=== PATIENT | male | born 1950 | race Caucasian/White ===

== ENCOUNTER 2016-04-02 13:25 | Observation (INO) | payer MEDICARE ==
--- NOTE | 2016-04-02 14:45 | ER Document Report ---
ED Medical Screen (RME) - General Chief Complaint: Rectal Pain Stated Complaint: POSSIBLE HEMMORHOIDS Mode of Arrival: Ambulatory Information source: Patient Notes: Patient is c/o diarrhea that started 3 days ago which he believes caused hemorrhoids. He states the rectal pain is severe pressure but this has improved since yesterday. He believes some burst yesterday, he saw pus at that time and he also endorses some BRBPR on the toilet paper and leakage causing him to need to change his underwear every 30 minutes. He tried immodium yesterday which seemed to stop the leakage. He has also tried several baths which provided some relief. Prior to this, he was hospitalized in [place] Mar 14 and hospitalized for 5 days for a severe bacterial infection of his abdomen and was discharged on two antibiotics, tetracycline and metronidazole. TRAVEL OUTSIDE OF THE [place] IN LAST 30 DAYS: No - Related Data Allergies/Adverse Reactions: Abx Allergy (Uncoded 04/02/16 13:35) Review of Systems - Review of Systems Constitutional: See HPI Gastrointestinal: See HPI Genitourinary: See HPI Physical Exam - Vital signs Vitals: Temp Pulse Resp BP Pulse Ox 98.4 F 111 H 20 171/106 H 98 04/02/16 13:31 04/02/16 13:31 04/02/16 13:04/02/16 13:04/02/16 13:31 - Notes Notes: General: hypertensive, tachycardia, afebrile. Appears uncomfortable but non- toxic. Course - Re-evaluation Re-evalutation: 04/02/16 14:45 Patient seen and examined. Ordered labs, urinalysis and occult blood. - Vital Signs Vital signs: Temp Pulse Resp BP Pulse Ox 98.4 F 111 H 20 171/106 H 98 04/02/16 13:31 04/02/16 13:31 04/02/16 13:31 04/02/16 13:31 04/02/16 13:31
[2016-04-02 15:39] LABS: ABSOLUTE BASOPHILS # (AUTO) 0.1 10^3/uL (0.0-0.2); ABSOLUTE EOSINOPHILS # (AUTO) 0.4 10^3/uL (0.0-0.6); ABSOLUTE LYMPHOCYTES (AUTO) 1.8 10^3/uL (0.5-4.7); ABSOLUTE MONOCYTES (AUTO) 1.1 10^3/uL (0.1-1.4); ABSOLUTE NEUT (AUTO) 8.3 10^3/uL (1.7-8.2); HEMATOCRIT 49.8 % (37.9-51.0); HEMOGLOBIN 16.6 g/dL (13.5-17.0); LYMPHOCYTES % (AUTO) 15.5 % (13-45); MEAN CORPUSCULAR HEMOGLOBIN 30.5 pg (27.0-33.4); MEAN CORPUSCULAR HGB CONC 33.4 g/dL (32.0-36.0); MEAN CORPUSCULAR VOLUME 91 fl (80-97); MONOCYTES % (AUTO) 9.3 % (3-13); RED BLOOD COUNT 5.44 10^6/uL (4.35-5.55); SEGMENTED NEUTROPHILS % (AUTO) 71.2 % (42-78); WHITE BLOOD COUNT 11.6 10^3/uL (4.0-10.5)
[2016-04-02 15:42] LABS: APPEARANCE,URINE SLIGHTLY-CLOUDY; BILIRUBIN,URINE NEGATIVE (NEGATIVE); GLUCOSE, URINE NEGATIVE (NEGATIVE); KETONES,URINE TRACE mg/dL (NEGATIVE); LEUKOCYTE ESTERASE,URINE NEGATIVE (NEGATIVE); NITRITE,URINE NEGATIVE (NEGATIVE); PROTEIN,URINE NEGATIVE (NEGATIVE); UROBILINOGEN,URINE NEGATIVE mg/dL (<2.0)
[2016-04-02 15:44] LABS: PROTHROMBIN TIME 12.8 SEC (11.4-15.4)
[2016-04-02 15:49] LABS: ALANINE AMINOTRANSFERASE 40 U/L (21-72); ALBUMIN 4.1 g/dL (3.5-5.0); ALKALINE PHOSPHATASE 82 U/L (38-126); ANION GAP 13 (5-19); ASPARTATE AMINO TRANSFERASE 32 U/L (17-59); BILIRUBIN,TOTAL 0.6 mg/dL (0.2-1.3); BLOOD UREA NITROGEN 20 mg/dL (7-20); CARBON DIOXIDE 27 mmol/L (22-30); CHLORIDE 104 mmol/L (98-107); CREATININE RESULT 1.01 mg/dL (0.52-1.25); GLUCOSE 102 mg/dL (75-110); LIPASE 228.1 U/L (23-300); POTASSIUM 4.3 mmol/L (3.6-5.0); SODIUM 144.3 mmol/L (137-145); TOTAL PROTEIN 7.3 g/dL (6.3-8.2)
--- NOTE | 2016-04-02 17:58 | ER Document Report ---
ED GI Bleed / Rectal Pain - General Chief Complaint: Rectal Pain Stated Complaint: POSSIBLE HEMMORHOIDS Time seen by provider: 17:53 Mode of Arrival: Ambulatory TRAVEL OUTSIDE OF THE [place] IN LAST 30 DAYS: No - HPI Patient complains to provider of: Rectal pain - pt was recently d/c'd from a [facility] on multiple meds -- started having diarrhea 3 days ago and then developed rectal pain . He has tried warm baths and ice but pain has continued --he noticed some blood on his underwear yesterday. - Related Data Allergies/Adverse Reactions: Abx Allergy (Uncoded 04/02/16 13:35) Past Medical History - General Information source: Patient - Social History Smoking Status: Never Smoker Cigarette use (# per day): No Chew tobacco use (# tins/day): No Smoking Education Provided: No Family History: None Review of Systems - Review of Systems Constitutional: No symptoms reported EENT: No symptoms reported Cardiovascular: No symptoms reported Respiratory: No symptoms reported Gastrointestinal: Other - rectal pain Male Genitourinary: No symptoms reported Musculoskeletal: No symptoms reported -: Yes All other systems reviewed and negative Physical Exam - Vital signs Vitals: Temp Pulse Resp BP Pulse Ox 98.4 F 111 H 20 171/106 H 98 04/02/16 13:31 04/02/16 13:31 04/02/16 13:31 04/02/16 13:31 04/02/16 13:31 Course - Vital Signs Vital signs: Temp Pulse Resp BP Pulse Ox 98.4 F 111 H 16 179/103 H 97 04/02/16 13:31 04/02/16 13:31 04/02/16 18:01 04/02/16 18:01 04/02/16 18:01 - Laboratory Result Diagrams: 04/02/16 15:23 04/02/16 15:23 Laboratory results interpreted by me: 04/02/16 04/02/16 15:11 15:23 WBC 11.6 H Absolute Neutrophils 8.3 H Urine Ketones TRACE H - Consults kim allan Time consulted: 18:57 Consulted provider: will come to ER Discharge - Discharge Clinical Impression: Thrombosed external hemorrhoids Condition: Stable Disposition: ADMITTED OBSERVATION Unit Admitted: Surgical Floor - dr. allan to admit
[2016-04-02] MEDS ORDERED: VERAPAMIL HCL 240 MG TABLET.SA PO ONE ×2 (18:03→21:00)
[2016-04-02] MEDS ORDERED: LIDOCAINE 2% JELLY 5 ML TUBE ONE (18:30)
[2016-04-02] MEDS ORDERED: ONDANSETRON HCL INJ/PF 4 MG/2 ML SDV IV PRN (19:06)
--- NOTE | 2016-04-02 19:22 | PDOC H&P ---
History of Present Illness Admission Date/PCP: 04/02/2015 Patient complains of: Rectal pain, bleeding History of Present Illness: ADRIAN ALMAZAN is a 65 year old male resents to the emergency department complaining of a 3 day history of loose stools, rectal pain, and anal mass associated with bleeding and purulent discharge. The patient was in his usual state of good health until approximately 1-1/2 weeks ago while he was driving through [place] from [place] he developed abdominal pain. He was admitted to [facility] in [place] where he underwent extensive workup and was found to have Helicobacter pylori infection. He was started on herbal therapy, and did well until approximately 3 days ago when the above symptoms started. He is seen in the emergency department and was found to have prolapsing , nonreducible external hemorrhoids with excoriation. Surgery is consulted and he was advised admission. In the emergency department Dr. Novak attempted to reduce the hemorrhoids after application of ice, and lidocaine jelly, but was only partially successful. Patient's last colonoscopy was 2 and at years ago at which time polyps were removed. He denies history of colon or rectal problems, denies history of constipation. He has never had any anorectal pathology. 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 Also has a history of hypertension but untreated Past Surgical History Past Surgical History: Reports: None Social History Occupation: Retired , travels Smoking Status: Never Smoker Frequency of Alcohol Use: Rare Drugs: None Family History Family History: None, Other - Son has a history of recurrent vein thrombosis, treated nonoperatively with anticoagulation and Coumadin. Subsequently multiple family members tested positive for antithrombin III deficiency Parental Family History Reviewed: Yes Children Family History Reviewed: Yes Sibling(s) Family History Reviewed.: Yes Medication/Allergy Allergies/Adverse Reactions: Abx Allergy (Uncoded 04/02/16 13:35) Review of Systems Gastrointestinal: PRESENT: other - Extensive diarrhea the last several days. Mucous bloody and purulent drainage from around the anus. Physical Exam Vital Signs: Temp Pulse Resp BP Pulse Ox 98.4 F 111 H 16 179/103 H 97 04/02/16 13:31 04/02/16 13:31 04/02/16 18:01 04/02/16 18:01 04/02/16 18:01 Intake & Output 04/01/16 04/02/16 04/03/16 06:59 06:59 06:59 Weight 106.4 kg General appearance: PRESENT: no acute distress Head exam: PRESENT: normocephalic Eye exam: PRESENT: EOMI Ear exam: PRESENT: normal external ear exam Mouth exam: PRESENT: moist Neck exam: PRESENT: full ROM Respiratory exam: PRESENT: clear to auscultation last Cardiovascular exam: PRESENT: RRR Pulses: PRESENT: normal carotid pulses GI/Abdominal exam: PRESENT: other - Abdomen is soft nontender no peritoneal signs. Rectal exam: PRESENT: other - Examining the left lateral decubitus position. There are 2 concentric rings of external hemorrhoids, prolapsed. The outer perimeter consisted of deviated hemorrhoids, edematous ultimately. The inner perimeter insists of at least 3 possibly for most hemorrhoids with overlying mucosal scoring radiation and slough. Results Laboratory Results: 04/02/16 15:23 04/02/16 15:23 04/02/16 04/02/16 04/02/16 15:11 15:23 15:23 WBC 11.6 H RBC 5.44 Hgb 16.6 Hct 49.8 MCV 91 MCH 30.5 MCHC 33.4 RDW 14.0 Plt Count 315 Seg Neutrophils % 71.2 Lymphocytes % 15.5 Monocytes % 9.3 Eosinophils % 3.0 Basophils % 1.0 Absolute Neutrophils 8.3 H Absolute Lymphocytes 1.8 Absolute Monocytes 1.1 Absolute Eosinophils 0.4 Absolute Basophils 0.1 Sodium 144.3 Potassium 4.3 Chloride 104 Carbon Dioxide 27 Anion Gap 13 BUN 20 Creatinine 1.01 Est GFR ( Amer) > 60 Est GFR (Non-Af Amer) > 60 Glucose 102 Calcium 10.0 Total Bilirubin 0.6 AST 32 ALT 40 Alkaline Phosphatase 82 Total Protein 7.3 Albumin 4.1 Lipase 228.1 Urine Color YELLOW Urine Appearance SLIGHTLY-CLOUDY Urine pH 5.0 Ur Specific [place] 1.030 Urine Protein NEGATIVE Urine Glucose (UA) NEGATIVE Urine Ketones TRACE H Urine Blood NEGATIVE Urine Nitrite NEGATIVE Ur Leukocyte Esterase NEGATIVE Urine WBC (Auto) 2 Urine RBC (Auto) 1 Status: Imported from PACS Assessment & Plan - Diagnosis (1) Thrombosed external hemorrhoids Is this a current diagnosis for this admission?: YesPlan: 1. Despite efforts to reduce thrombosed, edematous external hemorrhoids at the bedside in the emergency department, were only able to get partial reduction. Therefore given the patient's symptoms, component of thrombosis, and mucosal slough, interval hemorrhoidectomy is indicated. 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 2. Admit to the surgical service keep nothing by mouth after midnight, keep ice on the anal tissue. Also provide pain medication as needed. 3. Will check chest x-ray and EKG as part of the preoperative evaluation 4. Will have hospitalist consult on management of hypertension (2) Antithrombin III deficiency Is this a current diagnosis for this admission?: YesPlan: The patient has no history of DVT or PE. He is about to undergo interval hemorrhoidectomy. I believe the risk benefit ratio of prophylactic anticoagulation is in favor of withholding such treatment at this time. (3) Hypertension Is this a current diagnosis for this admission?: YesPlan: Will consult hospitalist for assistance in medical management of hypertension - Time Time Spent: 30 to 50 Minutes Critical Time spent with patient: 15-24 minutes Anticipated discharge: Home - Inpatient Certification Based on my medical assessment, after consideration of the patient's comorbidities, presenting symptoms, or acuity I expect that the services needed warrant INPATIENT care.: Yes I certify that my determination is in accordance with my understanding of Medicare's requirements for reasonable and necessary INPATIENT services [42 CFR 412.3e].: Yes Medical Necessity: Need For IV Fluids, Need for Pain Control, Need for Surgery
[2016-04-02] MEDS ORDERED: (PENDING PHARMACY ID) (Lisinopril/Hydrochlorothiazide [Lisinopril-Hctz 20-12.5 Mg Tab] 2 E PO SCH (21:00)
--- NOTE | 2016-04-02 21:07 | PDOC CONSULTATION ---
Consultation Consult Date: 04/02/16 Attending physician:: SHAYLA DRAKE Consult reason:: HTN management History of Present Illness Admission Date/PCP: 04/02/16 19:04 Patient complains of: rectal pain, bleeding History of Present Illness: ADRIAN ALMAZAN is a 65 year old male admitted to the surgery service for management of thrombosed external hemorrhoids and rectal bleeding. History and physical has been reviewed. Hospitalist service has been asked to manage his elevated blood pressure. Patient has been discussed with daytime hospitalist who spoke with the admitting surgeon. Patient normally is on verapamil and lisinopril HCTZ combo. Has had neither medication today. Normally he is compliant with his medications. Denies nausea vomiting, fever or chills, chest or abdominal pain. Diagnosed with antithrombin III deficiency this past summer. His primary care provider has chosen not to proceed with prophylactic anticoagulation. Both children also have same deficiency. Complains of a somewhat annoying cough, describing onset when he first presented to the emergency room. However, upon further discussion with patient he states family members have told him he actually has had a morning cough for quite some time. Denies any chronic underlying pulmonary disease such as asthma , COPD, or emphysema. Currently resting quietly, still having some mild perianal discomfort. Laboratory results are listed in [employer] and are reviewed. X-ray summary results are listed below, with full report(s) reviewed. . Social history/personal habits: . Has children. Retired. No use of tobacco or illicit drugs. Rare alcohol use. Family History : Both children have antithrombin III deficiency. Patient is an only child. Father is alive and healthy. Mother of cancer. Allergies/adverse reactions are listed in [employer] and are reviewed. Home medications are reviewed with patient and review of a hand written list of his medications and are to be reconc[facility]. Home medications initially autopopulated into [employer] may not accurately reflect patient's true medications, dosages, and/or frequencies. Compliant with medications, although has not taken any of his medications today. REVIEW OF SYSTEMS: Constitutional: No fever or chills. Eyes: No vision complaints. ENT: No swallowing problems or complaints. No hearing problems or complaints. Pulmonary: See history and present illness. Cardiovascular: No current complaints, including chest pain. Gastrointestinal: See history and present illness. Skin: No current complaints, including rashes. Hematologic: No unusual easy bruising or bleeding. Neurologic: No current complaints, including numbness or tingling. Musculoskeletal: No current bony or joint complaints. Psychiatric: No current complaints, including anxiety or depression. Endocrine: No current complaints, including polyuria. Genitourinary: No current complaints, including dysuria. PHYSICAL EXAMINATION: 5 feet 11 inches tall. 106.4 kg. BMI 32.7 kg/m. Blood pressure 154/105. Pulse 100 and regular. 97% saturation on room air. Respirations are 16 and unlabored. Temperature 98.4. Daughter is present at his side; patient approves. His female emergency room nurse Shameka is present. Slightly obese otherwise well-developed male appearing slightly younger than his stated age. Pleasant awake alert and cooperative. No obvious distress other than somewhat anxious. Skin is warm and dry. No grossly obvious evidence of rash in areas of skin examined. No subcutaneous nodules palpated. ENT: Hearing grossly normal to normal conversation. Tongue midline on protrusion pink and slightly tacky Eyes: No scleral icterus. Pupils equal and reactive to light at 4 mm. Catarina conjunctivae. Neck is supple and nontender to gentle active range of motion and palpation. Midline trachea. No palpable thyroid nodule mass enlargement or tenderness. Lymphatic: No palpable cervical or clavicular nodes. Neck and lymphatic exams limited by patient body habitus. Psychiatric: Reasonable insight into acute and chronic medical issues. Oriented to time location and why here. Lungs: Auscultation reveals clear and equal breath sounds bilaterally. No use of accessory respiratory muscles. Cardiovascular: Heart regular rate and rhythm, without gallop murmur or rub. No carotid or abdominal aortic bruits. No ankle or pedal edema. Faintly palpable dorsalis pedis pulses. Abdomen: soft, somewhat obese, nontender with positive bowel sounds. Unable to adequately evaluate abdomen for masses or organomegaly due to body habitus. Extremities: Feet are warm and dry. No calf tenderness to compression. No grossly obvious visual evidence of calf swelling. Gentle manipulation of lower extremities fails to reveal any obvious evidence of injury or instability to knees hips or ankles. Neurologic: Moves upper extremities grossly normally. Patellar reflexes absent. Absent Babinski. Light touch intact at feet. Dorsiflexion and plantarflexion of feet 5 / 5 and symmetric. Past Medical History Cardiac Medical History: Reports: Hypertension, Other - History of superficial venous thrombosis, upper extremity, by his description. Denies: Congestive Heart Failure, DVT, Myocardial Infarction, Hyperlipidema, Pulmonary Embolism Pulmonary Medical History: Denies: Asthma, Chronic Obstructive Pulmonary Disease (COPD) EENT Medical History: Denies: Eyes, Ears, Throat Neurological Medical History: Denies: Hemorrhagic CVA, Ischemic CVA, Seizures Endocrine Medical History: Denies: Diabetes Mellitus Type 1, Diabetes Mellitus Type 2, Hyperthyroidism, Hypothyroidism Renal/ Medical History: Reports: None Malignancy Medical History: Reports: Skin Cancer - Several precancerous skin lesions excised from his scalp. GI Medical History: Denies: Cirrhosis, Gastroesophageal Reflux Disease, Hepatitis, Peptic Ulcer Disease Musculoskeltal Medical History: Reports: Gout Skin Medical History: Reports: Other - Several precancerous skin lesions excised from his scalp. Denies: Eczema, Psoriasis Psychiatric Medical History: Denies: Alcohol Dependency, Depression, General Anxiety Disorder, Substance Abuse, Tobacco Dependency Hematology: Reports: Other - Antithrombin III deficiency. No history of significant thrombosis. Infectious Medical History: Denies: Hepatitis B, Hepatitis C Past Surgical History Past Surgical History: Reports: Other - [place] teeth extraction. Social History Information Source: Patient, Relative, Emergency Med Personnel, [facility] Records Smoking Status: Never Smoker Frequency of Alcohol Use: Rare Drugs: None - Advance Directive Resuscitation Status: Full Code Surrogate healthcare decision maker:: His son Family History Family History: None Parental Family History Reviewed: Yes Children Family History Reviewed: Yes Sibling(s) Family History Reviewed.: NA Medication/Allergy Home Medications: RX: Allopurinol [Zyloprim 300 mg Tablet] 300 mg PO DAILY 04/02/16 RX: Aspirin [Aspirin EC] 81 mg PO DAILY 04/02/16 RX: Multivitamin [Daily Multiple Vitamin] 1 tab PO DAILY 04/02/16 RX: Verapamil HCl [Verapamil ER] 240 mg PO DAILY 04/02/16 RX: Lisinopril/Hydrochlorothiazide [Lisinopril-Hctz 20-12.5 mg Tab] 2 each PO DAILY 04/03/16 RX: Docusate Sodium [Colace 100 mg Capsule] 100 mg PO BID #0 capsule 04/04/16 RX: Oxycodone HCl/Acetaminophen [Percocet 5-325 mg Tablet] 1 tab PO Q4HP PRN # 20 tablet 04/04/16 RX: Polyethylene Glycol 3350 [Miralax Powder 17 gm/Packet] 17 gm PO Q12H #0 powd.pack 04/04/16 Allergies/Adverse Reactions: clarithromycin [From Biaxin] Allergy (Verified 04/02/16 23:07) Abx Allergy (Uncoded 04/02/16 13:35) Physical Exam Vital Signs: Temp Pulse Resp BP Pulse Ox 98.4 F 111 H 16 179/103 H 97 04/02/16 13:31 04/02/16 13:31 04/02/16 18:01 04/02/16 18:01 04/02/16 18:01 Results Impressions: Chest X-Ray 04/02/16 18:55 IMPRESSION: REACTIVE AIRWAY DISEASE VERSUS VIRAL SYNDROME. NO CONSOLIDATION. Assessment & Plan - Diagnosis (1) Cough Is this a current diagnosis for this admission?: YesPlan: Rapid flu. (2) Abnormal chest xray Is this a current diagnosis for this admission?: YesPlan: Rapid flu. (3) DVT prophylaxis Is this a current diagnosis for this admission?: YesPlan: Per surgery. (4) Hypertensive urgency Is this a current diagnosis for this admission?: YesPlan: Resume home medications as appropriate once these have been reviewed. Impression and plans were discussed with patient and daughter, both of whom concur. Time spent in evaluation and management of patient: 65 minutes. (5) Thrombosed external hemorrhoids Is this a current diagnosis for this admission?: YesPlan: Surgical management. (6) Antithrombin III deficiency Is this a current diagnosis for this admission?: YesPlan: Hematology consult. (7) Gout Qualifiers: Gout site: unspecified site Gout etiology: unspecified cause Chronicity: chronic Is this a current diagnosis for this admission?: YesPlan: Resume home medications as appropriate once these have been reviewed. (8) Hypertension Qualifiers: Hypertension type: essential hypertension Qualified Code(s): I10 - Essential (primary) hypertension Is this a current diagnosis for this admission?: Yes
[2016-04-02] MEDS: MORPHINE SULFATE 10 MG/ML INJ IV PRN (21:51)
[2016-04-02] MEDS: RINGERS SOLUTION,LACTATED 1,000 ML IV PRN (21:55)
[2016-04-02] MEDS ORDERED: LISINOPRIL 10 MG TABLET PO ONE (23:00)
[2016-04-02] MEDS ORDERED: HYDROCHLOROTHIAZIDE 25 MG TABLET PO ONE (23:00)
[2016-04-03] MEDS: MORPHINE SULFATE 10 MG/ML INJ IV PRN ×6 (01:15→22:03)
[2016-04-03] MEDS: RINGERS SOLUTION,LACTATED 1,000 ML IV PRN (05:07)
--- NOTE | 2016-04-03 08:46 | PDOC PROGRESS REPORT ---
[id number], no fever. Physical Exam Vital Signs: Temp Pulse Resp BP Pulse Ox 97.2 F 75 14 113/61 98 04/03/16 08:11 04/03/16 08:11 04/03/16 08:11 04/03/16 08:11 04/03/16 08:11 Intake & Output 04/02/16 04/03/16 04/04/16 06:59 06:59 06:59 Intake Total 0 Output Total 200 Balance -200 Weight 106.6 kg General appearance: PRESENT: no acute distress, cooperative Head exam: PRESENT: atraumatic, normocephalic Respiratory exam: PRESENT: clear to auscultation last GI/Abdominal exam: PRESENT: soft. ABSENT: distended, firm, guarding, hernia Rectal exam: PRESENT: hemorrhoids - There is two concentric rings of prolapsed and thrombosed external hemorrhoids, with extensive surrounding edema in the mucosa. Digital rectal examination was not performed due to pain, no perianal skin changes. Neurological exam: PRESENT: alert, awake Results Impressions: Chest X-Ray 04/02/16 18:55 IMPRESSION: REACTIVE AIRWAY DISEASE VERSUS VIRAL SYNDROME. NO CONSOLIDATION. Assessment & Plan - Diagnosis (1) Thrombosed external hemorrhoids Is this a current diagnosis for this admission?: YesPlan: Patient 65 years old male with prolapsed and thrombosed external hemorrhoid, it is circumferential and extensive, was edematous surrounding tissue, patient will require urgent surgical intervention, excisional hemorrhoidectomy is needed , I discussed with the patient the risks and benefits of the procedure including : Infection, bleeding, pain, scar formation, delayed wound healing, anal stricture, fecal or gas incontinence, perianal fistula, injury to the sphincter muscle or other structures, recurrence of the hemorrhoids, possible need for further interventions or procedures. Patient expressed understanding and agreed to proceed with the procedure. All his questions were answered. (2) Antithrombin III deficiency Is this a current diagnosis for this admission?: YesPlan: Patient is not on anticoagulation, I discussed the case with Dr. Mcqueen, due to the need for urgent surgical intervention, we'll hold on anticoagulation at this point.
[2016-04-03] MEDS ORDERED: CEFAZOLIN SODIUM 1 GM in DEXTROSE 5%-WATER 50 ML IV PRN (09:02)
[2016-04-03] MEDS ORDERED: FENTANYL CITRATE INJ/PF 100 MCG/2 ML AMPUL ONE (09:07)
[2016-04-03] MEDS ORDERED: PROPOFOL INJ 200 MG/20 ML VIAL IV ONE (09:08)
[2016-04-03] MEDS ORDERED: MIDAZOLAM 2 MG/2 ML INJ ONE (09:08)
[2016-04-03] MEDS ORDERED: DEXMEDETOMIDINE INJ 80 MCG/20 ML VIAL IV ONE (09:08)
[2016-04-03] MEDS ORDERED: EPHEDRINE SULFATE INJ 50 MG/1 ML AMPULE ONE (09:09)
[2016-04-03] MEDS ORDERED: BUPIVACAINE HCL 0.25% /EPINEPHRINE INJ/PF 30 ML SDV ONE (09:11)
[2016-04-03] MEDS ORDERED: LIDOCAINE 1% INJ-PF (10 MG/ML) 30 ML SDV ONE (09:11)
[2016-04-03] MEDS ORDERED: CEFAZOLIN INJ 1 GM VIAL ONE (09:20)
[2016-04-03] MEDS ORDERED: (PENDING PHARMACY ID) (Lisinopril/Hydrochlorothiazide [Lisinopril-Hctz 20-12.5 Mg Tab] 2 E PO SCH (10:00)
[2016-04-03] MEDS ORDERED: FENTANYL CITRATE INJ/PF 100 MCG/2 ML AMPUL IV PRN ×3 (10:06)
[2016-04-03] MEDS ORDERED: PROMETHAZINE HCL INJ 25 MG/1 ML VIAL IV PRN ×2 (10:06)
[2016-04-03] MEDS ORDERED: MORPHINE SULFATE 10 MG/ML INJ IV PRN (10:06)
[2016-04-03] MEDS ORDERED: OXYCODONE-ACETAMINOPHEN 5-325 MG TABLET PO PRN ×2 (10:06)
[2016-04-03] MEDS ORDERED: MEPERIDINE HCL/PF INJ 25 MG/1 ML DISP.SYRIN IV PRN (10:06)
[2016-04-03] MEDS ORDERED: DIPHENHYDRAMINE HCL 50 MG/ML VIAL IV PRN (10:06)
--- NOTE | 2016-04-03 11:53 | Operative Report ---
[id number] and explaining the risks and benefits to the patient and family including bleeding, infection, postoperative pain, postoperative scar formation , fecal and gas incontinence, recurrence of the hemorrhoids, possible need for further intervention, and the potential of injury to other structures; the patient was brought to the operating room. General anesthesia was induced. ET tube was inserted. Patient was placed in prone troy knife position. The perianal area was prepped and draped in the usual sterile fashion, and a timeout was performed. Local anesthesia using Marcaine 0.25% with epinephrine and Lidocaine 1% was used to perform a perianal block. An anoscope was introduced, prolapsed and throbosed external and internal hemorrhoids at the right anterior, right posterior and left lateral locations were identified. A hemostat was placed near the base of each pedicle near the dentate line and retracted externally to exteriorize the hemorrhoidal pedicle. Each pedicle was excised in turn in the following fashion: An elliptical incision was made at the perianal skin near hemorrhoidal pedicle. The hemorrhoidal tissue was dissected from the internal sphincter muscle which was identified and protected. Hemostasis was achieved using Bovie cautery. The hemorrhoidal pedicle was excised using Harmonic energy device.Then, a 2-0 Vicryl suture was used to achieve hemostasis by ligating the hemorrhoidal pedicle, the same suture was used in a running manner to close the resulting mucosa defect. Then, a 3-0 chromic suture was used to close the skin in the perianal area in an interrupted manner. Rectal exam was performed at the end of the procedure digitally and using the anoscope and it was patent and allows insertion of medium size anal retractor without difficulty. Hemostasis was achieved. A piece of gelfoam was placed in the rectum for further hemostatic effect. Bacitracin ointment was placed at the incisions. Patient tolerated the procedure well. The patient was transferred after the procedure to recovery room in stable condition. PREOPERATIVE DIAGNOSIS: Thrombosed external hemorrhoids. POSTOPERATIVE DIAGNOSIS: Thromosed, prolapsed internal and external hemorrhoids. OPERATION: Excisional hemorrhoidectomy SURGEON: DELL MOREAU ANESTHESIA: GA TISSUE REMOVED OR ALTERED: Hemorrhoidal tissue.( Right anterior pedicle, right posterior pedicle, left lateral pedicle) COMPLICATIONS: None ESTIMATED BLOOD LOSS: 25 ml INTRAOPERATIVE FINDINGS: Circumferential thrombosed and prolapsed internal and external hemorrhoids with surrounding edema. There is a focal necrotic spots at the anoderm covering thrombosed external hemorrhoid.
--- NOTE | 2016-04-03 11:53 | Brief Operative Note ---
BRIEF OPERATIVE REPORT DATE OF SURGERY: 04/03/16 TIME OF SURGERY: 10:00 PREOPERATIVE DIAGNOSIS: Thrombosed external hemorrhoids. POSTOPERATIVE DIAGNOSIS: Thromosed, prolapsed internal and external hemorrhoids. SURGEON: DELL MOREAU FINDINGS: Circumferential thrombosed and prolapsed internal and external hemorrhoids with surrounding edema. There is a focal necrotic spots at the anoderm covering thrombosed external hemorrhoid. COMPLICATIONS: None ESTIMATED BLOOD LOSS: 25 ml TISSUE REMOVED OR ALTERED: Hemorrhoidal tissue.( Right anterior pedicle, right posterior pedicle, left lateral pedicle) TECHNICAL PROCEDURE: Excisional hemorrhoidectomy
[2016-04-03] MEDS ORDERED: DOCUSATE SODIUM 100 MG CAPSULE PO ONE (12:00)
[2016-04-03] MEDS: VERAPAMIL HCL 240 MG TABLET.SA PO SCH (13:09)
[2016-04-03] MEDS: ALLOPURINOL 300 MG TABLET PO SCH (13:10)
[2016-04-03] MEDS: HYDROCHLOROTHIAZIDE 25 MG TABLET PO SCH (13:10)
[2016-04-03] MEDS: MULTIVITAMIN TABLET PO SCH (13:11)
[2016-04-03] MEDS: LISINOPRIL 10 MG TABLET PO SCH (13:11)
[2016-04-03] MEDS: ASPIRIN 81 MG TABLET, ENT COATED PO SCH (13:12)
[2016-04-03] MEDS ORDERED: NORMAL SALINE 1000 ML 1,000 ML IV PRN (14:48)
[2016-04-03] MEDS ORDERED: LIDOCAINE 2% INJ-PF (20 MG/ML) 10 ML AMPUL ONE (14:56)
--- NOTE | 2016-04-03 15:57 | PDOC PROGRESS REPORT ---
Subjective Progress Note for:: 04/03/16 Subjective:: unable to void after surgery lower abdominal discomfort no fever or chills BP well controlled Physical Exam Vital Signs: Temp Pulse Resp BP Pulse Ox 97.4 F 91 12 131/73 H 93 04/03/16 12:06 04/03/16 13:00 04/03/16 12:06 04/03/16 13:00 04/03/16 13:00 Intake & Output 04/02/16 04/03/16 04/04/16 00:59 00:59 00:59 Intake Total 2400 Output Total 725 Balance 1675 Weight 106.6 kg General appearance: PRESENT: no acute distress, well-developed, well-nourished Head exam: PRESENT: atraumatic, normocephalic Eye exam: PRESENT: conjunctiva pink, EOMI, PERRLA. ABSENT: scleral icterus Ear exam: PRESENT: normal external ear exam Mouth exam: PRESENT: moist, tongue midline Neck exam: ABSENT: carotid bruit, JVD, lymphadenopathy, thyromegaly Respiratory exam: PRESENT: clear to auscultation last. ABSENT: rales, rhonchi, wheezes Cardiovascular exam: PRESENT: RRR. ABSENT: diastolic murmur, rubs, systolic murmur Pulses: PRESENT: normal dorsalis pedis pul Vascular exam: PRESENT: normal capillary refill GI/Abdominal exam: PRESENT: normal bowel sounds, soft. ABSENT: distended, guarding, mass, organolmegaly, rebound, tenderness Rectal exam: PRESENT: deferred Extremities exam: PRESENT: full ROM. ABSENT: calf tenderness, clubbing, pedal edema Neurological exam: PRESENT: alert, awake, oriented to person, oriented to place , oriented to time, oriented to situation, CN II-XII grossly intact. ABSENT: motor sensory deficit Psychiatric exam: PRESENT: appropriate affect, normal mood. ABSENT: homicidal ideation, suicidal ideation Skin exam: PRESENT: dry, intact, warm. ABSENT: cyanosis, rash Results Laboratory Results: 04/02/16 15:23 04/02/16 15:23 Impressions: Chest X-Ray 04/02/16 18:55 IMPRESSION: REACTIVE AIRWAY DISEASE VERSUS VIRAL SYNDROME. NO CONSOLIDATION. Assessment & Plan - Diagnosis (1) Urinary retention Is this a current diagnosis for this admission?: YesPlan: insert collier catheter (2) Abnormal chest xray Is this a current diagnosis for this admission?: YesPlan: etiology unclear (3) Thrombosed external hemorrhoids Is this a current diagnosis for this admission?: YesPlan: underwent surgery this am management as per Dr Maldonado (4) Antithrombin III deficiency Is this a current diagnosis for this admission?: YesPlan: patient is not chronically anticoagulated lovenox prophylaxis (5) Hypertension Qualifiers: Hypertension type: essential hypertension Qualified Code(s): I10 - Essential (primary) hypertension Is this a current diagnosis for this admission?: YesPlan: BP better controlled - Time Time Spent with patient: discharge in am if stable Time Spent with patient: 25-34 minutes
[2016-04-03] MEDS ORDERED: HYDROMORPHONE HCL INJ/PF 2 MG/ML AMPULE IV ONE (16:45)
[2016-04-03] MEDS: POLYETHYLENE GLYCOL 3350 POWDER 17 GM/1 PACKET PO SCH ×2 (18:44→23:24)
[2016-04-03] MEDS: DOCUSATE SODIUM 100 MG CAPSULE PO SCH (18:45)
[2016-04-03] MEDS: OXYCODONE-ACETAMINOPHEN 5-325 MG TABLET PO PRN (22:03)
--- NOTE | 2016-04-03 23:36 | PDOC CONSULTATION ---
Consultation Consult Date: 04/03/16 Consult reason:: AT III deficiency History of Present Illness Admission Date/PCP: 04/02/16 19:04 History of Present Illness: ADRIAN ALMAZAN is a 65 year old male with AT III deficiency who was admitted to the surgery service for management of thrombosed bleeding external hemorrhoids. Diagnosed with antithrombin III deficiency this past summer when his son had embolic phenomenon. His primary care provider has chosen not to proceed with prophylactic anticoagulation as he has never experienced any clots. Two of his children also have the same deficiency. He resides in [place] and was traveling [place] [facility] to come visit his daughter who resides here in [place] when he experienced chest discomfort and was hospitalized in [place], [place] where he underwent extensive evaluation including cardiac eval and PE which were negative. He finally was diagnosed with H. pylori and treated. He resumed his travels but developed diarrhea which he felt was related to the antibiotics. Unfortunately, he then developed severe rectal pain along with fever and presented to the ED with thrombosed and bleeding hemorrhoids scheduled to go to surgery today. He had plans to go back to [place] and then fly to [place]. Past Medical History Cardiac Medical History: Reports: Hypertension, Other - History of superficial venous thrombosis, upper extremity, by his description. Denies: Congestive Heart Failure, DVT, Myocardial Infarction, Hyperlipidema, Pulmonary Embolism Pulmonary Medical History: Denies: Asthma, Chronic Obstructive Pulmonary Disease (COPD) EENT Medical History: Reports: Other - Antithrombin III deficiency. No history of significant thrombosis. Denies: Eyes, Ears, Throat Neurological Medical History: Denies: Hemorrhagic CVA, Ischemic CVA, Seizures Endocrine Medical History: Denies: Diabetes Mellitus Type 1, Diabetes Mellitus Type 2, Hyperthyroidism, Hypothyroidism Renal/ Medical History: Reports: None Malignancy Medical History: Reports: Skin Cancer - Several precancerous skin lesions excised from his scalp. GI Medical History: Denies: Cirrhosis, Gastroesophageal Reflux Disease, Hepatitis, Peptic Ulcer Disease Musculoskeltal Medical History: Reports: Gout Skin Medical History: Reports: Other - Several precancerous skin lesions excised from his scalp. Denies: Eczema, Psoriasis Psychiatric Medical History: Denies: Alcohol Dependency, Depression, General Anxiety Disorder, Substance Abuse, Tobacco Dependency Hematology: Reports: Other - Antithrombin III deficiency. No history of significant thrombosis. Infectious Medical History: Denies: Hepatitis B, Hepatitis C Past Surgical History Past Surgical History: Reports: None, Other - [place] teeth extraction. Social History Lives with: Alone - as a and travels in his RV Smoking Status: Never Smoker Frequency of Alcohol Use: Rare Hx Recreational Drug Use: No Drugs: None Hx Prescription Drug Abuse: No - Advance Directive Resuscitation Status: Full Code Family History Family History: None Parental Family History Reviewed: Yes - Mother of cancer Children Family History Reviewed: Yes - 2 of 3 with AT III def Sibling(s) Family History Reviewed.: Yes Medication/Allergy Home Medications: Allopurinol [Zyloprim 300 mg Tablet] 300 mg PO DAILY 04/02/16 Aspirin [Aspirin EC] 81 mg PO DAILY 04/02/16 Multivitamin [Daily Multiple Vitamin] 1 tab PO DAILY 04/02/16 Verapamil HCl [Verapamil ER] 240 mg PO DAILY 04/02/16 Lisinopril/Hydrochlorothiazide [Lisinopril-Hctz 20-12.5 mg Tab] 2 each PO DAILY 04/03/16 Allergies/Adverse Reactions: clarithromycin [From Biaxin] Allergy (Verified 04/02/16 23:07) Abx Allergy (Uncoded 04/02/16 13:35) Review of Systems Constitutional: PRESENT: as per HPI Gastrointestinal: PRESENT: as per HPI Physical Exam Vital Signs: Temp Pulse Resp BP Pulse Ox 97.7 F 86 18 123/67 96 04/03/16 19:35 04/03/16 19:35 04/03/16 19:35 04/03/16 19:35 04/03/16 19:35 Intake & Output 04/02/16 04/03/16 04/04/16 06:59 06:59 06:59 Intake Total 0 2400 Output Total 200 925 Balance -200 1475 Weight 106.6 kg General appearance: PRESENT: other - Uncomfortable with movement Head exam: PRESENT: normocephalic Eye exam: PRESENT: EOMI, PERRLA Ear exam: PRESENT: normal external ear exam Mouth exam: PRESENT: neck supple Respiratory exam: PRESENT: clear to auscultation last Cardiovascular exam: PRESENT: RRR GI/Abdominal exam: PRESENT: soft Rectal exam: PRESENT: deferred Musculoskeletal exam: PRESENT: full ROM Neurological exam: PRESENT: alert, awake, oriented to person, oriented to place , oriented to time, oriented to situation, CN II-XII grossly intact Results Impressions: Chest X-Ray 04/02/16 18:55 IMPRESSION: REACTIVE AIRWAY DISEASE VERSUS VIRAL SYNDROME. NO CONSOLIDATION. Assessment & Plan - Diagnosis (1) DVT prophylaxis Is this a current diagnosis for this admission?: YesPlan: Have ordered post op (2) Thrombosed external hemorrhoids Is this a current diagnosis for this admission?: YesPlan: Surgical intervention today. Discussed prophylaxis with the patient and his daughter with Xarelto pending his recovery and travel plans. (3) Antithrombin III deficiency Is this a current diagnosis for this admission?: YesPlan: Discussed post op Xarelto with the patient and daughter depending on his travel plans - Time Time Spent: 50 to 70 Minutes Critical Time spent with patient: 25-34 minutes Anticipated discharge: Home Within: within 72 hours
[2016-04-04] MEDS: IBUPROFEN 600 MG TABLET PO PRN ×2 (02:40→14:48)
[2016-04-04] MEDS: MORPHINE SULFATE 10 MG/ML INJ IV PRN (02:40)
[2016-04-04] MEDS: OXYCODONE-ACETAMINOPHEN 5-325 MG TABLET PO PRN ×2 (08:37→14:51)
[2016-04-04] MEDS: VERAPAMIL HCL 240 MG TABLET.SA PO SCH (09:46)
[2016-04-04] MEDS: ASPIRIN 81 MG TABLET, ENT COATED PO SCH (09:47)
[2016-04-04] MEDS: MULTIVITAMIN TABLET PO SCH (09:47)
[2016-04-04] MEDS: DOCUSATE SODIUM 100 MG CAPSULE PO SCH ×2 (09:47→17:36)
[2016-04-04] MEDS: ALLOPURINOL 300 MG TABLET PO SCH (09:47)
[2016-04-04] MEDS: HYDROCHLOROTHIAZIDE 25 MG TABLET PO SCH (09:47)
[2016-04-04] MEDS: LISINOPRIL 10 MG TABLET PO SCH (09:48)
[2016-04-04] MEDS: POLYETHYLENE GLYCOL 3350 POWDER 17 GM/1 PACKET PO SCH (11:25)
[2016-04-04] MEDS ORDERED: TAMSULOSIN HCL 0.4 MG CAP.SR.24H PO ONE (13:00)
--- NOTE | 2016-04-04 19:05 | PDOC PROGRESS REPORT ---
Subjective Progress Note for:: 04/04/16 Subjective:: Doing well post op without significant bleeding Physical Exam Vital Signs: Temp Pulse Resp BP Pulse Ox 98.3 F 87 14 163/79 H 95 04/04/16 16:42 04/04/16 16:42 04/04/16 16:42 04/04/16 16:42 04/04/16 16:42 Intake & Output 04/03/16 04/04/16 04/05/16 06:59 06:59 06:59 Intake Total 0 2430 621 Output Total 200 1925 350 Balance -200 505 271 Weight 106.6 kg 106 kg General appearance: PRESENT: no acute distress Head exam: PRESENT: normocephalic Eye exam: PRESENT: conjunctiva pink, EOMI, PERRLA Ear exam: PRESENT: normal external ear exam Respiratory exam: PRESENT: clear to auscultation last Cardiovascular exam: PRESENT: RRR Extremities exam: PRESENT: full ROM Results Impressions: Chest X-Ray 04/02/16 18:55 IMPRESSION: REACTIVE AIRWAY DISEASE VERSUS VIRAL SYNDROME. NO CONSOLIDATION. Assessment & Plan - Diagnosis (1) DVT prophylaxis Is this a current diagnosis for this admission?: Yes (2) Thrombosed external hemorrhoids Is this a current diagnosis for this admission?: YesPlan: s/p surgery without significant bleeding (3) Antithrombin III deficiency Is this a current diagnosis for this admission?: YesPlan: Place on Lovenox prophylactically and consider short term prophylactic Xarelto - Time Time Spent with patient: 25-34 minutes Medications reviewed and adjusted accordingly: Yes Anticipated discharge: Home Within: within 36 hours
[2016-04-04] MEDS ORDERED: ENOXAPARIN SODIUM INJ 40 MG/0.4 ML DISP.SYRIN SUBCUT ONE (20:00)
--- NOTE | 2016-04-04 20:03 | PDOC DISCHARGE SUMMARY ---
General - Admit/Disc Date/PCP Admission Date/Primary Care Provider: 04/02/16 19:04 Discharge Date: 04/04/16 - Discharge Diagnosis (1) Thrombosed external hemorrhoids Is this a current diagnosis for this admission?: YesSummary: William Almazan is a 65-year-old white male who was admitted on the evening of 05/2016 with bleeding, painful, thrombosed hemorrhoids. Unable to completely reduce. Patient was taken to the OR on 04/03/2016 for hemorrhoidectomy. Had urinary retention postoperatively. Jose catheter was placed and was given a dose of Flomax. When the Jose catheter was removed the following day on 2016, he continued to have urinary retention. A Jose catheter was placed and he was discharged home on Flomax. He will follow up with the urologist in 3-5 days in clinic. The patient also had hypertension and a known history of antithrombin III deficiency. He was treated by the hospitalist for hypertension and other medical comorbidities. He was seen by a [employer] oncologist for antithrombin III deficiency. He was given Lovenox as an inpatient. She recommended Xarelto, and will arrange the specifics of dosing and timing through her office. He was discharged home with Jose catheter in place on 04/04/2016. His pain was well-controlled with oral pain medications. Instructions were given on postop activity, restrictions and Jose care. (2) Urinary retention Is this a current diagnosis for this admission?: YesSummary: See above (3) Antithrombin III deficiency Is this a current diagnosis for this admission?: YesSummary: See above (4) Hypertension Is this a current diagnosis for this admission?: YesSummary: See above - Additional Information Resuscitation Status: Full Code Home Medications: Allopurinol [Zyloprim 300 mg Tablet] 300 mg PO DAILY 04/02/16 Aspirin [Aspirin EC] 81 mg PO DAILY 04/02/16 Multivitamin [Daily Multiple Vitamin] 1 tab PO DAILY 04/02/16 Verapamil HCl [Verapamil ER] 240 mg PO DAILY 04/02/16 Lisinopril/Hydrochlorothiazide [Lisinopril-Hctz 20-12.5 mg Tab] 2 each PO DAILY 04/03/16 History of Present Illness History of Present Illness: WILLIAM ALMAZAN is a 65 year old male Hospital Course Hospital Course: William Almazan is a 65-year-old white male who was admitted on the evening of 05/2016 with bleeding, painful, thrombosed hemorrhoids. Unable to completely reduce. Patient was taken to the OR on 04/03/2016 for hemorrhoidectomy. Had urinary retention postoperatively. Jose catheter was placed and was given a dose of Flomax. When the Jose catheter was removed the following day on 2016, he continued to have urinary retention. A Jose catheter was placed and he was discharged home on Flomax. He will follow up with the urologist in 3-5 days in clinic. The patient also had hypertension and a known history of antithrombin III deficiency. He was treated by the hospitalist for hypertension and other medical comorbidities. He was seen by a [employer] oncologist for antithrombin III deficiency. He was given Lovenox as an inpatient. She recommended Xarelto, and will arrange the specifics of dosing and timing through her office. He was discharged home with Jose catheter in place on 04/04/2016. His pain was well-controlled with oral pain medications. Instructions were given on postop activity, restrictions and Jose care. Physical Exam Vital Signs: Temp Pulse Resp BP Pulse Ox 98.3 F 87 14 163/79 H 95 04/04/16 16:42 04/04/16 16:42 04/04/16 16:42 04/04/16 16:42 04/04/16 16:42 Intake & Output 04/03/16 04/04/16 04/05/16 06:59 06:59 06:59 Intake Total 0 2430 621 Output Total 200 1925 350 Balance -200 505 271 Weight 106.6 kg 106 kg General appearance: PRESENT: no acute distress Head exam: PRESENT: normocephalic Eye exam: PRESENT: EOMI Mouth exam: PRESENT: tongue midline Respiratory exam: PRESENT: unlabored GI/Abdominal exam: PRESENT: soft. ABSENT: tenderness Rectal exam: PRESENT: other - Status post hemorrhoidectomy. Nonthrombosed, decompressed hemorrhoids. No active bleeding. No drainage. Neurological exam: PRESENT: alert, oriented to situation Results Impressions: Chest X-Ray 04/02/16 18:55 IMPRESSION: REACTIVE AIRWAY DISEASE VERSUS VIRAL SYNDROME. NO CONSOLIDATION. Qualifiers PATEINT BEING DISCHARGED WITH ANY OF THE FOLLOWING DIAGNOSIS?: No Plan Discharge Plan: The patient will resume home medications upon discharge with the addition of Percocet for pain, a bowel regimen including [id number] Colace, MiraLAX and magnesium citrate, Flomax, and he will call Dr. Nino's office on the morning of 04/05/2016 to arrange Xarelto dosing. He will follow up with the urologist in 3-5 days in clinic. He will follow up in surgery clinic in 3-7 days. He was discharged home with Jose catheter in place on 04/04/2016. Instructions were given on postop activity, restrictions and Jose care.
[2016-04-04 20:26] VITALS: BP 113/61
== END 2016-04-04 21:30 | disposition home or self-care (01) ==
LOC: ER 13:25 → EH 19:04 → 4N 04-03
PROC: 06BY3ZC Excision of Hemorrhoidal Plexus, Percutaneous Approach (ICD-10-PCS; principal; 2016-04-03 09:45)
DX: K64.5 Perianal venous thrombosis (principal); K64.8 Other hemorrhoids; R33.9 Retention of urine, unspecified; D68.59 Other primary thrombophilia; I10 Essential (primary) hypertension; Z79.82 Long term (current) use of aspirin
CPT/HCPCS: 46260; 99285; 96374; 36415; 83690; 85025; 85610; 80053; 81001; 87804; 88304 ×2; 71020; G0378 ×3; A9270 ×17; J2250; J3490 ×7; J0690; J3010; J2270 ×3; J1650; J1170; J2405; J7120 ×2; J2704; 902

== ENCOUNTER 2016-04-22 16:09 | Inpatient (IN) | payer MEDICARE ==
[2016-04-22] MEDS ORDERED: HYDROCODONE/ACETAMINOPHEN 5-325 MG TABLET PO ONE (17:13)
[2016-04-22] MEDS ORDERED: ACETAMINOPHEN 325 MG TABLET PO ONE (17:15)
--- NOTE | 2016-04-22 17:21 | ER Document Report ---
ED Medical Screen (RME) - General Chief Complaint: Abdominal Pain Stated Complaint: SIDE AND BACK PAIN Mode of Arrival: Ambulatory Information source: Patient Notes: 65 y/o M presents to ED c/o mid chest/epigastric pain. Reports hx of pancreatitis and aortic aneurysm. Denies n/v, or sob. TRAVEL OUTSIDE OF THE [place] IN LAST 30 DAYS: No COUNTRY TRAVELED TO/FROM: [place] - Related Data Allergies/Adverse Reactions: clarithromycin [From Biaxin] Allergy (Verified 04/02/16 23:07) Abx Allergy (Uncoded 04/02/16 13:35) Past Medical History - Social History Frequency of alcohol use: Occasional Drug Abuse: None - Past Medical History Cardiac Medical History: Reports: Hx Hypertension Denies: Hx Congestive Heart Failure, Hx DVT, Hx Heart Attack, Hx Hypercholesterolemia, Hx Pulmonary Embolism Pulmonary Medical History: Denies: Hx Asthma, Hx COPD Neurological Medical History: Denies: Hx Seizures Endocrine Medical History: Denies: Hx Diabetes Mellitus Type 1, Hx Diabetes Mellitus Type 2, Hx Hyperthyroidism, Hx Hypothyroidism Renal/ Medical History: Denies: Hx Peritoneal Dialysis Malignancy Medical History: Reports Hx Skin Cancer - Several precancerous skin lesions excised from his scalp. GI Medical History: Denies: Hx Cirrhosis, Hx Gastroesophageal Reflux Disease, Hx Hepatitis Musculoskeltal Medical History: Reports Hx Gout Skin Medical History: Denies Hx Eczema, Denies Hx Psoriasis Psychiatric Medical History: Denies: Hx Depression Infectious Medical History: Denies: Hx Hepatitis Past Surgical History: Reports: Other - [place] teeth extraction. Physical Exam - Vital signs Vitals: Temp Pulse Resp BP Pulse Ox 100.3 F 118 H 17 136/79 H 95 04/22/16 17:05 04/22/16 17:05 04/22/16 17:05 04/22/16 17:05 04/22/16 17:05 - General General appearance: Appears well, Alert In distress: None - Respiratory Respiratory status: No respiratory distress Course - Vital Signs Vital signs: Temp Pulse Resp BP Pulse Ox 100.3 F 118 H 17 136/79 H 95 04/22/16 17:05 04/22/16 17:05 04/22/16 17:05 04/22/16 17:05 04/22/16 17:05
--- NOTE | 2016-04-22 17:33 | ER Document Report ---
ED Medical Screen (RME) - General Chief Complaint: Abdominal Pain Stated Complaint: SIDE AND BACK PAIN Mode of Arrival: Ambulatory Information source: Patient Notes: 65-year-old male presents to emergency department complaining of right mid abdominal pain that radiates to and from right flank area. Reports associated headache, dark urine, and chills. Reports travels internationally multiple times a year last one was during Thanksgiving time to [place]. Denies dysuria, chest pain or shortness of breath. TRAVEL OUTSIDE OF THE [place] IN LAST 30 DAYS: No COUNTRY TRAVELED TO/FROM: [place] - Related Data Allergies/Adverse Reactions: clarithromycin [From Biaxin] Allergy (Verified 04/02/16 23:07) Abx Allergy (Uncoded 04/02/16 13:35) Past Medical History - Social History Frequency of alcohol use: Occasional Drug Abuse: None - Past Medical History Cardiac Medical History: Reports: Hx Hypertension Denies: Hx Congestive Heart Failure, Hx DVT, Hx Heart Attack, Hx Hypercholesterolemia, Hx Pulmonary Embolism Pulmonary Medical History: Denies: Hx Asthma, Hx COPD Neurological Medical History: Denies: Hx Seizures Endocrine Medical History: Denies: Hx Diabetes Mellitus Type 1, Hx Diabetes Mellitus Type 2, Hx Hyperthyroidism, Hx Hypothyroidism Renal/ Medical History: Denies: Hx Peritoneal Dialysis Malignancy Medical History: Reports Hx Skin Cancer - Several precancerous skin lesions excised from his scalp. GI Medical History: Denies: Hx Cirrhosis, Hx Gastroesophageal Reflux Disease, Hx Hepatitis Musculoskeltal Medical History: Reports Hx Gout Skin Medical History: Denies Hx Eczema, Denies Hx Psoriasis Psychiatric Medical History: Denies: Hx Depression Infectious Medical History: Denies: Hx Hepatitis Past Surgical History: Reports: Other - [place] teeth extraction. Physical Exam - Vital signs Vitals: Temp Pulse Resp BP Pulse Ox 100.3 F 118 H 17 136/79 H 95 04/22/16 17:05 04/22/16 17:05 04/22/16 17:05 04/22/16 17:05 04/22/16 17:05 - General General appearance: Alert In distress: None - Respiratory Respiratory status: No respiratory distress Course - Vital Signs Vital signs: Temp Pulse Resp BP Pulse Ox 100.3 F 118 H 17 136/79 H 95 04/22/16 17:05 04/22/16 17:05 04/22/16 17:05 04/22/16 17:05 04/22/16 17:05 - Laboratory Result Diagrams: 04/22/16 17:20 04/22/16 17:20
[2016-04-22 17:39] LABS: APPEARANCE,URINE SLIGHTLY-CLOUDY; BILIRUBIN,URINE NEGATIVE (NEGATIVE); GLUCOSE, URINE NEGATIVE (NEGATIVE); KETONES,URINE NEGATIVE (NEGATIVE); LEUKOCYTE ESTERASE,URINE NEGATIVE (NEGATIVE); NITRITE,URINE NEGATIVE (NEGATIVE); PROTEIN,URINE 30 mg/dL (NEGATIVE); URINE SPECIFIC GRAVITY 1.025
[2016-04-22 17:40] LABS: HEMATOCRIT 48.9 % (37.9-51.0); HGB HCT DIFFERENCE -0.9; MEAN CORPUSCULAR HEMOGLOBIN 30.5 pg (27.0-33.4); MEAN CORPUSCULAR HGB CONC 32.7 g/dL (32.0-36.0); MEAN CORPUSCULAR VOLUME 93 fl (80-97); RED BLOOD COUNT 5.24 10^6/uL (4.35-5.55); RED CELL DISTRIBUTION WIDTH 14.7 % (11.5-14.0)
[2016-04-22 17:56] LABS: ALANINE AMINOTRANSFERASE 27 U/L (21-72); ALBUMIN 4.4 g/dL (3.5-5.0); ALKALINE PHOSPHATASE 102 U/L (38-126); ANION GAP 16 (5-19); ASPARTATE AMINO TRANSFERASE 18 U/L (17-59); BILIRUBIN,TOTAL 2.1 mg/dL (0.2-1.3); BLOOD UREA NITROGEN 25 mg/dL (7-20); CALCIUM 9.8 mg/dL (8.4-10.2); CARBON DIOXIDE 27 mmol/L (22-30); CHLORIDE 95 mmol/L (98-107); CREATININE RESULT 1.19 mg/dL (0.52-1.25); GLUCOSE 127 mg/dL (75-110); POTASSIUM 3.6 mmol/L (3.6-5.0); SODIUM 137.5 mmol/L (137-145); TOTAL PROTEIN 7.2 g/dL (6.3-8.2)
[2016-04-22 18:03] LABS: BASOPHILS % (MANUAL) 2 % (0-2); EOSINOPHILS % (MANUAL) 0 % (0-6); LYMPHOCYTES % (MANUAL) 9 % (13-45); RBC MORPHOLOGY COMMENT NORMO-CYTIC/CHROMIC; TOTAL CELLS COUNTED 100
[2016-04-22] MEDS ORDERED: NORMAL SALINE 1000 ML 1,000 ML IV ONE (18:39)
[2016-04-22 18:56] LABS: PROTHROMBIN TIME 14.9 SEC (11.4-15.4)
--- NOTE | 2016-04-22 19:21 | ER Document Report ---
ED General - General Chief Complaint: Abdominal Pain Stated Complaint: SIDE AND BACK PAIN Time seen by provider: 19:19 Mode of Arrival: Ambulatory Notes: Patient is a 65-year-old male that comes emergency department for chief complaint of pain in his mid to right abdomen that wraps around to the back, patient states symptoms started about 2 and half days ago, last night pain became much worse, he vomited earlier today and felt like he was running fever. Patient reports a normal bowel movement within the past 24 hours. Patient states he had a similar presentation and admission in [place] within the past month, states he was on antibiotics, also had a hemorrhoidectomy performed [address] Maldonado. Patient also travels out of country frequently. Past medical history of hypertension, denies any abdominal surgeries, patient denies chest pain or any cardiac history. TRAVEL OUTSIDE OF THE [place] IN LAST 30 DAYS: No COUNTRY TRAVELED TO/FROM: [place] - Related Data Allergies/Adverse Reactions: clarithromycin [From Biaxin] Allergy (Verified 04/02/16 23:07) Abx Allergy (Uncoded 04/02/16 13:35) Past Medical History - General Information source: Patient - Social History Smoking Status: Never Smoker Frequency of alcohol use: Occasional Drug Abuse: None Lives with: Family Family History: None, Other Patient has suicidal ideation: No Patient has homicidal ideation: No - Past Medical History Cardiac Medical History: Reports: Hx Hypertension Denies: Hx Congestive Heart Failure, Hx DVT, Hx Heart Attack, Hx Hypercholesterolemia, Hx Pulmonary Embolism Pulmonary Medical History: Denies: Hx Asthma, Hx COPD Neurological Medical History: Denies: Hx Seizures Endocrine Medical History: Denies: Hx Diabetes Mellitus Type 1, Hx Diabetes Mellitus Type 2, Hx Hyperthyroidism, Hx Hypothyroidism Renal/ Medical History: Denies: Hx Peritoneal Dialysis Malignancy Medical History: Reports Hx Skin Cancer - Several precancerous skin lesions excised from his scalp. GI Medical History: Denies: Hx Cirrhosis, Hx Gastroesophageal Reflux Disease, Hx Hepatitis Musculoskeltal Medical History: Reports Hx Gout Skin Medical History: Denies Hx Eczema, Denies Hx Psoriasis Psychiatric Medical History: Denies: Hx Depression Infectious Medical History: Denies: Hx Hepatitis Past Surgical History: Reports: Other - [place] teeth extraction. - Immunizations Hx Pneumococcal Vaccination: 03/01/16 Review of Systems - Review of Systems Constitutional: See HPI EENT: No symptoms reported Cardiovascular: No symptoms reported Respiratory: No symptoms reported Gastrointestinal: See HPI Genitourinary: No symptoms reported Male Genitourinary: No symptoms reported Musculoskeletal: No symptoms reported Skin: No symptoms reported Hematologic/Lymphatic: No symptoms reported Neurological/Psychological: No symptoms reported Physical Exam - Vital signs Vitals: Temp Pulse Resp BP Pulse Ox 100.3 F 118 H 17 136/79 H 95 04/22/16 17:05 04/22/16 17:05 04/22/16 17:05 04/22/16 17:05 04/22/16 17:05 Interpretation: Normal - General General appearance: Appears well, Alert In distress: None - Patient sitting on the bed, sitting up, alert, does not appear to be in any distress - HEENT Head: Normocephalic, Atraumatic Eyes: Normal Conjunctiva: Normal Extraocular movements intact: Yes Eyelashes: Normal Pupils: PERRL Mouth/Lips: Normal Mucous membranes: Normal Pharynx: Normal Neck: Normal - Respiratory Respiratory status: No respiratory distress Chest status: Nontender Breath sounds: Normal. No: Decreased air movement, Wheezing Chest palpation: Normal - Cardiovascular Rhythm: Regular, Tachycardia - Borderline Heart sounds: Normal auscultation, S1 appreciated, S2 appreciated Murmur: No - Abdominal Inspection: Normal Distension: No distension Bowel sounds: Normal Tenderness: Tender - Patient significantly tender in the mid right abdomen, some right lower quadrant tenderness, patient is also tender in the right upper quadrant. Left abdomen is completely unremarkable - Back Back: Normal, Nontender. No: Tender - Extremities General upper extremity: Normal inspection, Nontender, Normal ROM, Normal strength General lower extremity: Normal inspection, Nontender, Normal ROM, Normal strength - Neurological Neuro grossly intact: Yes Cognition: Normal Orientation: AAOx4 Aldrich Coma Scale Eye Opening: Spontaneous Aldrich Coma Scale Verbal: Oriented Taryn Coma Scale Motor: Obeys Commands Taryn Coma Scale Total: 15 Speech: Normal Motor strength normal: LUE, RUE, LLE, RLE Sensory: Normal - Psychological Associated symptoms: Normal affect, Normal mood - Skin Skin Temperature: Warm Skin Moisture: Dry Skin Color: Normal Course - Re-evaluation Re-evalutation: Visual examination of the rectum is unremarkable. No tenderness or abscess noted in the perirectal area. Patient is significantly tender in the abdomen, worse in the mid right abdomen, patient has tenderness in the right lower quadrant and right upper quadrant. Leukocytosis at 25,000, low-grade fever. Patient states he was on antibiotics for H. pylori, C. difficile will be tested. Chemistries unremarkable with normal lipase, LFTs, alkaline phosphatase. Normal bilirubin. Patient declines pain medication after given hydrocodone by triage, giving fluids, keeping nothing by mouth other than oral contrast. Discussed with Dr. Quinones per [facility] guidelines. CT shows concerning findings for acute cholecystitis. On reexamination patient has become significantly more tender in the right upper quadrant and right side. Patient given Zosyn, consulted surgery. Dr. Grey evaluated patient at bedside, declines additional ultrasound, states he'll admit patient to the hospital. - Vital Signs Vital signs: Temp Pulse Resp BP Pulse Ox 100.3 F 118 H 17 136/79 H 95 04/22/16 17:05 04/22/16 17:05 04/22/16 17:05 04/22/16 17:05 04/22/16 17:05 - Laboratory Result Diagrams: 04/22/16 17:20 04/22/16 17:20 Laboratory results interpreted by me: 04/22/16 04/22/16 04/22/16 17:20 17:20 17:20 WBC 25.0 H RDW 14.7 H Seg Neuts % (Manual) 88 H Lymphocytes % (Manual) 9 L Monocytes % (Manual) 1 L Abs Neuts (Manual) 22.0 H Abs Basophils (Manual) 0.5 H Chloride 95 L BUN 25 H Glucose 127 H Total Bilirubin 2.1 H Urine Protein 30 H Urine Blood SMALL H Urine Urobilinogen 2.0 H Discharge - Discharge Clinical Impression: Cholecystitis Abdominal pain Qualifiers: Abdominal location: unspecified location Qualified Code(s): R10.9 - Unspecified abdominal pain Leukocytosis Qualifiers: Leukocytosis type: unspecified Qualified Code(s): D72.829 - Elevated white blood cell count, unspecified Fever Qualifiers: Fever type: unspecified Qualified Code(s): R50.9 - Fever, unspecified Disposition: ADMITTED INPATIENT Admitting Provider: Surgicalist Unit Admitted: Surgical Floor
--- NOTE | 2016-04-22 20:30 | EKG REPORT ---
SEVERITY:- BORDERLINE ECG - SINUS TACHYCARDIA PROBABLE LEFT ATRIAL ABNORMALITY : Confirmed by: Tre Haider MD 22-Apr-2016 20:30:34
[2016-04-22 21:57] LABS: VENOUS BLOOD BASE EXCESS 2.5 mmol/L; VENOUS BLOOD HCO3 29.1 mmol/L (20-32); VENOUS BLOOD PCO2 52.4 mmHg (35-63); VENOUS BLOOD PH 7.36 (7.30-7.42)
[2016-04-22] MEDS ORDERED: PIPERACILLIN/TAZOBACTAM 3.375 GM VIAL IV ONE (22:31)
[2016-04-22] MEDS: NORMAL SALINE 1000 ML 1,000 ML IV PRN (23:45)
[2016-04-23] MEDS ORDERED: FAMOTIDINE INJ/PF 20 MG/2 ML SDV IV ONE
[2016-04-23] MEDS: ONDANSETRON HCL INJ/PF 4 MG/2 ML SDV IV PRN (00:12)
[2016-04-23] MEDS: HYDROMORPHONE HCL INJ/PF 2 MG/ML AMPULE IV PRN ×5 (00:13→21:52)
--- NOTE | 2016-04-23 01:18 | HISTORY AND PHYSICAL E ---
History and Physical NAME: ADRIAN ALMAZAN : 1950 AGE: 65Y ADMITTED: 04/23/2016 ROOM: ED03 REASON FOR ADMISSION: Abdominal pain. HISTORY OF PRESENT ILLNESS: This 65-year-old male was in his usual state of health until approximately 2-1/2 days ago when he developed some vague abdominal pain which was approximately 5/10, which subsided but then returned approximately 30 hours ago, which kept him up at night and prevented him from sleeping because of the intensity of the pain which was 10/10. The patient states that the pain was in his mid to right abdomen and was radiating to his back, associated with vomiting earlier x1, with associated subjective fever. Patient states that he took his temperature and it was 100.4. Patient has not been able to eat significantly and only had some pretzels and another snack this afternoon. Patient denies any cholera, any colored stools or jaundice but he does have a history of postprandial bloating, gaseousness, and indigestion. Patient presented to the emergency room complaining of significant right upper quadrant and right flank pain. Patient states that a month ago he was in [place] and had a similar attack and was placed on antibiotics and was thought that perhaps he may have gastritis. Patient presents to our emergency room and on examination was found to have marked right upper quadrant tenderness with some guarding. Patient's laboratory data revealed a white count of 25,000, hemoglobin 16, and hematocrit of 48.9 suggesting hemoconcentration with mild dehydration. His liver function studies revealed a bilirubin of 2.1 with normal ALT, AST, and alkaline phosphatase. Patient underwent a CT scan of the abdomen which revealed mild inflammatory changes in the gallbladder fossa suggestive of acute cholecystitis. For this reason, surgical referral was made. PAST MEDICAL HISTORY: 1. Hypertension. 2. Gout. No history of diabetes mellitus or cardiac, renal, pulmonary, liver disease, or breathing tendency. No history of anesthesia problems in the family. MEDICATIONS: 1. Verapamil 240 mg p.o. daily. 2. Lisinopril/hydrochlorothiazide 20/12.5 mg two each p.o. daily. 3. Allopurinol 300 mg p.o. daily. 4. Aspirin. 5. Colace. 6. Multivitamins. ALLERGIES: 1. Biaxin. 2. Erythromycin. REVIEW OF SYSTEMS: Patient has no symptoms referable to the constitutional systems. Patient has no symptoms referable to the ENT, respiratory, or cardiovascular systems. Gastrointestinal symptom as in history of present illness. Patient denies any symptoms referable to the genitourinary or musculoskeletal systems. Patient has history of GOUT. Patient has no other symptoms referable to the integumentary, lymphatic, endocrine or psychiatric systems. SOCIAL HISTORY: Patient drinks occasionally, does not smokes, and denies illicit drugs. PHYSICAL EXAMINATION: GENERAL: Reveals a 65-year-old male who was mildly obese, well nourished, normally developed, complaining of right upper quadrant pain. VITAL SIGNS: Temperature 100.3, heart rate 118, respirations 17, blood pressure 136/79, saturation is 95% on room air. HEENT: There is no conjunctival pallor or scleral icterus. Mucous membranes are moist and pink. NECK: Supple without nodes, masses, thyroid, JVD or bruits. Trachea is midline. CHEST WALL: Good excursion. LUNGS: Clear anteriorly with good entry. CARDIOVASCULAR: S1 and S2 are audible without murmurs or gallops. Patient is mildly tachycardic. ABDOMEN: Obese, soft, with marked right upper quadrant tenderness with guarding, with positive Valentine sign. Patient is mostly exquisitely tender in the most lateral aspect of the right upper quadrant. Did not palpate the gallbladder but has a positive Valentine sign. EXTREMITIES: Full range of motion without edema or tenderness. Adequate pulses are noted distally. LABORATORY DATA: Again, the patient's white count was 25,000 but hemoglobin and hematocrit are within normal limits. Patient's blood sugar is 127. IMPRESSION: Acute cholecystitis. PLAN: Patient will be admitted to the hospital and started on antibiotics, and will be scheduled for a laparoscopic cholecystectomy in a.m. by Dr. Novak who he is familiar with. DICTATING PHYSICIAN: KHAI COX M.D. [id number] PHY#: [id number] ID: [id number] JOB#: [id number] ACCT: [id number] cc: >
[2016-04-23] MEDS ORDERED: DIPHENHYDRAMINE HCL 50 MG/ML VIAL IV ONE (02:54)
[2016-04-23 05:30] LABS: ALBUMIN 3.7 g/dL (3.5-5.0); BILIRUBIN,DIRECT 0.4 mg/dL (0.0-0.3); BILIRUBIN,TOTAL 3.1 mg/dL (0.2-1.3); TOTAL PROTEIN 5.9 g/dL (6.3-8.2)
[2016-04-23] MEDS ORDERED: PIPERACILLIN/TAZOBACTAM 3.375 GM VIAL IV ONE (06:00)
--- NOTE | 2016-04-23 08:01 | PDOC PROGRESS REPORT ---
Subjective Progress Note for:: 04/23/16 Subjective:: Patient complaining of abdominal pain, bloating. Physical Exam Vital Signs: Temp Pulse Resp BP Pulse Ox 99.0 F 105 H 18 141/81 H 92 04/23/16 04:42 04/23/16 04:42 04/23/16 04:42 04/23/16 04:42 04/23/16 04:42 General appearance: PRESENT: mild distress GI/Abdominal exam: PRESENT: other - Significant right upper tenderness with guarding. Results Laboratory Results: 04/23/16 04:36 Total Bilirubin 3.1 H AST 23 ALT 33 Alkaline Phosphatase 98 Total Protein 5.9 L Albumin 3.7 Impressions: Abdomen/Pelvis CT 04/22/16 00:00 IMPRESSION: Moderate inflammatory changes are present in the gallbladder fossa suggesting possible cholecystitis. Chest X-Ray 04/22/16 18:40 IMPRESSION: Minimal subsegmental atelectasis at the left lateral lung base, otherwise stable radiograph. Assessment & Plan - Diagnosis (1) Abdominal pain Qualifiers: Abdominal location: unspecified location Qualified Code(s): R10.9 - Unspecified abdominal pain Is this a current diagnosis for this admission?: YesPlan: 1. Persisting right upper quadrant pain, localized tenderness with guarding, and leukocytosis all consistent with acute cholecystitis. Confirmed by CT scan showing pericholecystic fluid. 2. Of concern is patient's bilirubin elevating from 2.1 to 3.1. This may be consistent with cholecystitis, or retained common bile duct stone. Will recruit the assistance of Dr. Derrick Brady to assess and render opinion regarding further management.
[2016-04-23] MEDS: ENOXAPARIN SODIUM INJ 40 MG/0.4 ML DISP.SYRIN SUBCUT SCH (09:04)
[2016-04-23] MEDS: VERAPAMIL HCL 240 MG TABLET.SA PO SCH (10:00)
[2016-04-23] MEDS: LISINOPRIL 10 MG TABLET PO SCH (10:00)
[2016-04-23] MEDS: HYDROCHLOROTHIAZIDE 25 MG TABLET PO SCH (10:00)
[2016-04-23] MEDS: FAMOTIDINE INJ/PF 20 MG/2 ML SDV IV SCH ×2 (10:42→22:28)
[2016-04-23] MEDS ORDERED: ACETAMINOPHEN 325 MG TABLET ONE (13:21)
[2016-04-23] MEDS: NORMAL SALINE 1000 ML 1,000 ML IV PRN ×2 (13:26→19:10)
[2016-04-23] MEDS ORDERED: ACETAMINOPHEN 325 MG TABLET PO PRN (13:45)
[2016-04-23] MEDS ORDERED: PROMETHAZINE HCL INJ 25 MG/1 ML VIAL ONE (17:11)
[2016-04-23] MEDS ORDERED: NALOXONE HCL INJ/PF 0.4 MG/1 ML SDV ONE (17:11)
[2016-04-23] MEDS ORDERED: FLUMAZENIL INJ 0.5 MG/5 ML VIAL IV ONE (17:12)
[2016-04-23] MEDS ORDERED: FENTANYL CITRATE INJ/PF 100 MCG/2 ML AMPUL ONE (17:12)
[2016-04-23] MEDS ORDERED: GLUCAGON,HUMAN RECOMB 1 MG INJ ONE (17:12)
[2016-04-23] MEDS ORDERED: EPINEPHRINE INJ 1 MG/10 ML DISP.SYRIN ONE (17:12)
[2016-04-23] MEDS ORDERED: ONDANSETRON HCL INJ/PF 4 MG/2 ML SDV ONE (17:13)
[2016-04-23] MEDS: MIDAZOLAM 2 MG/2 ML INJ ONE ×3 (18:16→18:29)
--- NOTE | 2016-04-23 18:40 | PDOC CONSULTATION ---
Consultation Consult Date: 04/23/16 History of Present Illness Admission Date/PCP: 04/22/16 23:43 History of Present Illness: This is a 65-year-old patient admitted to the hospital with 2 day episode of abdominal pain, fever, nausea, and abnormal CAT scan. His bilirubin was 2.4 on admission but this went up to 3.1 the next day. His transaminases and lipase were normal. His white count was 25. CAT scan of the abdomen showed moderate inflammatory changes around the gallbladder with no definite gallstone identified Past Medical History Cardiac Medical History: Reports: Hypertension Denies: Congestive Heart Failure, DVT, Myocardial Infarction, Hyperlipidema, Pulmonary Embolism Pulmonary Medical History: Denies: Asthma, Chronic Obstructive Pulmonary Disease (COPD) Neurological Medical History: Denies: Seizures Endocrine Medical History: Denies: Diabetes Mellitus Type 1, Diabetes Mellitus Type 2, Hyperthyroidism, Hypothyroidism Malignancy Medical History: Reports: Skin Cancer - Several precancerous skin lesions excised from his scalp. GI Medical History: Denies: Cirrhosis, Gastroesophageal Reflux Disease, Hepatitis Musculoskeltal Medical History: Reports: Gout Skin Medical History: Denies: Eczema, Psoriasis Psychiatric Medical History: Denies: Depression Past Surgical History Past Surgical History: Reports: Other - [place] teeth extraction. Social History Lives with: Family Smoking Status: Former Smoker Frequency of Alcohol Use: Social Hx Recreational Drug Use: No Drugs: None Hx Prescription Drug Abuse: No - Advance Directive Resuscitation Status: Full Code Family History Family History: None, Other Parental Family History Reviewed: No Children Family History Reviewed: NA Sibling(s) Family History Reviewed.: NA Medication/Allergy Home Medications: Allopurinol [Zyloprim 300 mg Tablet] 300 mg PO DAILY 04/02/16 Aspirin [Aspirin EC] 81 mg PO DAILY 04/02/16 Multivitamin [Daily Multiple Vitamin] 1 tab PO DAILY 04/02/16 Verapamil HCl [Verapamil ER] 240 mg PO DAILY 04/02/16 Lisinopril/Hydrochlorothiazide [Lisinopril-Hctz 20-12.5 mg Tab] 1 each PO BID Docusate Sodium [Colace 100 mg Capsule] 100 mg PO BID #0 capsule 04/04/16 Oxycodone HCl/Acetaminophen [Percocet 5-325 mg Tablet] 1 tab PO Q4HP PRN #20 tablet 04/04/16 Tamsulosin HCl [Tamsulosin HCl] 0.4 mg PO DAILY 04/23/16 Allergies/Adverse Reactions: clarithromycin [From Biaxin] Allergy (Verified 04/02/16 23:07) Abx Allergy (Uncoded 04/02/16 13:35) Review of Systems All systems: reviewed and no additional remarkable complaints except as stated Physical Exam Vital Signs: Temp Pulse Resp BP Pulse Ox 98.5 F 100 12 157/82 H 93 04/23/16 17:05 04/23/16 18:00 04/23/16 18:00 04/23/16 18:00 04/23/16 18:00 Exam: General: Patient is alert and looks well. He is obese HEENT: There is no pallor or jaundice. PERRLA. Oropharynx normal Respiratory: No chest deformity. No respiratory distress. Chest wall palpitation was unremarkable. Breath sounds were normal Cardiovascular: Heart sounds 1 and 2 normal with no murmurs. Abdominal: Obese. Soft and tender in the right upper quadrant. Liver and spleen not palpable. No ascites demonstrated. Bowel sounds active. Rectal examination was deferred. Extremities: No edema Neurological: Alert and oriented x4. Grossly nonfocal. Normal speech Skin: No significant rash Psychological: Normal affect Results Laboratory Results: 04/23/16 04:36 Total Bilirubin 3.1 H AST 23 ALT 33 Alkaline Phosphatase 98 Total Protein 5.9 L Albumin 3.7 Impressions: Abdomen/Pelvis CT 04/22/16 00:00 IMPRESSION: Moderate inflammatory changes are present in the gallbladder fossa suggesting possible cholecystitis. Chest X-Ray 04/22/16 18:40 IMPRESSION: Minimal subsegmental atelectasis at the left lateral lung base, otherwise stable radiograph. Assessment & Plan - Diagnosis (1) Abnormal liver function Is this a current diagnosis for this admission?: YesPlan: His elevated bilirubin may be related to his acute cholecystitis or choledocholithiasis. The need for an ERCP was explained to the patient and he is in agreement. He will undergo cholecystectomy today or tomorrow. He is on antibiotics (2) Abdominal pain Qualifiers: Abdominal location: unspecified location Qualified Code(s): R10.9 - Unspecified abdominal pain Is this a current diagnosis for this admission?: Yes (3) Cholecystitis Is this a current diagnosis for this admission?: Yes (4) Leukocytosis Qualifiers: Leukocytosis type: unspecified Qualified Code(s): D72.829 - Elevated white blood cell count, unspecified Is this a current diagnosis for this admission?: Yes
--- NOTE | 2016-04-23 18:41 | Operative Report ---
Operative Report DATE OF SURGERY: 04/23/16 Operative Report: Pre-op diagnosis: Right upper quadrant pain, abnormal CAT scan and jaundice Post-op diagnosis: Common bile duct sludge and periampullar diverticulum Surgery: ERCP with sphincterotomy and balloon sludge extraction Medications: Versed 4 mg Fentanyl 100 mcg IV push Tissue removed: None Procedure: After informed consent obtained from patient, the throat was sprayed with Hurricane and conscious sedation was achieved. The ERCP endoscope was then inserted into the esophagus blindly and advanced into the stomach. The duodenum was entered and the ampulla was identified. Using the triple-lumen sphincterotomy catheter the common bile duct was freely cannulated. A cholangiogram was obtained which showed possible filling defect in the distal common bile duct. The common bile duct and intrahepatic ducts did not appear dilated. A good sized sphincterotomy was then performed using the endocut mode. The catheter was removed over the guidewire before a 9-12 mm balloon catheter was inserted. The balloon was inflated to 12 mm in the proximal common bile duct and pulled down the duct. Some sludge was extracted. The duct was swept one more time. A balloon occlusion cholangiogram was normal. The pancreatic duct was intentionally not cannulated. Patient tolerated procedure well. Findings Common bile duct: Normal size duct with moderate amount of sludge. There was a periampullary diverticulum Intrahepatic ducts: Normal Pancreatic duct: Not cannulated Plan: Proceed with cholecystectomy OPERATION: .
[2016-04-23] MEDS ORDERED: LISINOPRIL 10 MG TABLET PO ONE (21:30)
[2016-04-23] MEDS ORDERED: VERAPAMIL HCL 240 MG TABLET.SA PO ONE (21:30)
[2016-04-23] MEDS ORDERED: HYDROCHLOROTHIAZIDE 25 MG TABLET PO ONE (21:30)
[2016-04-23] MEDS: PIPERACILLIN SODIUM/TAZOBACTAM 3.375 GM in NORMAL SALINE 100 ML IV SCH (22:28)
[2016-04-24] MEDS: HYDROMORPHONE HCL INJ/PF 2 MG/ML AMPULE IV PRN ×7 (02:42→23:53)
[2016-04-24] MEDS: NORMAL SALINE 1000 ML 1,000 ML IV PRN (04:01)
[2016-04-24] MEDS: PIPERACILLIN SODIUM/TAZOBACTAM 3.375 GM in NORMAL SALINE 100 ML IV SCH ×2 (05:16→15:17)
[2016-04-24 07:36] LABS: HEMATOCRIT 40.9 % (37.9-51.0); MEAN CORPUSCULAR HEMOGLOBIN 30.3 pg (27.0-33.4); MEAN CORPUSCULAR HGB CONC 32.5 g/dL (32.0-36.0); MEAN CORPUSCULAR VOLUME 93 fl (80-97); RED BLOOD COUNT 4.39 10^6/uL (4.35-5.55); RED CELL DISTRIBUTION WIDTH 14.3 % (11.5-14.0); WHITE BLOOD COUNT 14.3 10^3/uL (4.0-10.5)
[2016-04-24 07:47] LABS: ALBUMIN 3.1 g/dL (3.5-5.0); BILIRUBIN,TOTAL 2.3 mg/dL (0.2-1.3); TOTAL PROTEIN 5.9 g/dL (6.3-8.2)
[2016-04-24 08:05] LABS: HEMOGLOBIN 13.3 g/dL (13.5-17.0)
[2016-04-24] MEDS ORDERED: LIDOCAINE 1% INJ-PF (10 MG/ML) 30 ML SDV ONE (09:27)
[2016-04-24] MEDS ORDERED: BUPIVACAINE HCL 0.25% /EPINEPHRINE INJ/PF 30 ML SDV ONE (09:27)
[2016-04-24] MEDS ORDERED: FENTANYL CITRATE INJ/PF 250 MCG/5 ML AMPULE ONE (09:45)
[2016-04-24] MEDS ORDERED: ACETAMINOPHEN 100 ML IV ONE ×2 (09:46→10:00)
[2016-04-24] MEDS ORDERED: HYDROMORPHONE HCL INJ/PF 2 MG/ML AMPULE ONE (09:46)
[2016-04-24] MEDS ORDERED: MIDAZOLAM 2 MG/2 ML INJ ONE (09:46)
[2016-04-24] MEDS ORDERED: PROPOFOL INJ 200 MG/20 ML VIAL IV ONE (09:46)
--- NOTE | 2016-04-24 09:47 | PDOC PROGRESS REPORT ---
Subjective Progress Note for:: 04/24/16 Subjective:: no n/v, mild fevers, +flatus. still pain but less than yesterday. got scheduled abx this a.m. Medx held this a.m. for OR. Physical Exam Vital Signs: Temp Pulse Resp BP Pulse Ox 99.5 F 89 19 155/75 H 94 04/24/16 09:01 04/24/16 09:01 04/24/16 09:01 04/24/16 09:01 04/24/16 09:01 Intake & Output 04/23/16 04/24/16 04/25/16 06:59 06:59 06:59 Intake Total 900 Balance 900 Weight 105.188 kg General appearance: PRESENT: no acute distress Head exam: PRESENT: normocephalic Eye exam: PRESENT: EOMI Mouth exam: PRESENT: tongue midline Respiratory exam: PRESENT: clear to auscultation last Cardiovascular exam: PRESENT: RRR GI/Abdominal exam: PRESENT: distended, Valentine's sign, soft, tenderness - mild to moderate tender to palp in RUQ, R mid-abd, R flank. no peritoneal signs. Musculoskeletal exam: PRESENT: ambulatory Neurological exam: PRESENT: alert, oriented to person, oriented to place, oriented to time, oriented to situation Psychiatric exam: PRESENT: appropriate affect, normal mood Skin exam: ABSENT: jaundice Results Laboratory Results: 04/24/16 06:59 04/24/16 04/24/16 06:59 06:59 WBC 14.3 H RBC 4.39 Hgb 13.3 L D Hct 40.9 MCV 93 MCH 30.3 MCHC 32.5 RDW 14.3 H Plt Count 255 Total Bilirubin 2.3 H AST 34 ALT 45 Alkaline Phosphatase 150 H Total Protein 5.9 L Albumin 3.1 L Impressions: Abdomen/Pelvis CT 04/22/16 00:00 IMPRESSION: Moderate inflammatory changes are present in the gallbladder fossa suggesting possible cholecystitis. Chest X-Ray 04/22/16 18:40 IMPRESSION: Minimal subsegmental atelectasis at the left lateral lung base, otherwise stable radiograph. Endo Retro Cholangiopancreatogram 04/23/16 00:00 IMPRESSION: IMAGE(S) OBTAINED DURING PROCEDURE. Fluoroscopy 04/23/16 00:00 IMPRESSION: Please see combined report for performance of procedure and radiologic supervision and interpretation. Assessment & Plan - Diagnosis (1) Choledocholithiasis with acute cholecystitis with obstruction Is this a current diagnosis for this admission?: YesPlan: s/p ERCP, T bili down to 2.3. Feeling a little better, WBC down to 14. Proceed to OR for lap, possible open shabbir. Discussed surgery in detail including risks , benefits, alternatives. Higher risks for DVT/PE due to ATIII deficiency. Risks include , CT, CVA, DVT/PE, pneumonia, hernia, bile leak, bleeding, infection, failure of symptoms to reslove, damage to surrounding structures such as bladder, bowels, blood vessels, bile duct leading to terminal make up operator health issues. wishes to proceed. (2) Cholecystitis Is this a current diagnosis for this admission?: Yes (3) Antithrombin III deficiency Is this a current diagnosis for this admission?: Yes
[2016-04-24] MEDS ORDERED: DIPHENHYDRAMINE HCL 50 MG/ML VIAL IV PRN (09:55)
[2016-04-24] MEDS ORDERED: MEPERIDINE HCL/PF INJ 25 MG/1 ML DISP.SYRIN IV PRN (09:55)
[2016-04-24] MEDS ORDERED: ONDANSETRON HCL INJ/PF 4 MG/2 ML SDV IV PRN (09:55)
[2016-04-24] MEDS ORDERED: FENTANYL CITRATE INJ/PF 100 MCG/2 ML AMPUL IV PRN ×3 (09:55)
[2016-04-24] MEDS ORDERED: MORPHINE SULFATE 10 MG/ML INJ IV PRN (09:55)
[2016-04-24] MEDS ORDERED: PROMETHAZINE HCL INJ 25 MG/1 ML VIAL IV PRN (09:55)
[2016-04-24 13:53] LABS: HEMATOCRIT 39.4 % (37.9-51.0); HEMOGLOBIN 13.1 g/dL (13.5-17.0); HGB HCT DIFFERENCE -0.1; MEAN CORPUSCULAR HEMOGLOBIN 30.8 pg (27.0-33.4); MEAN CORPUSCULAR HGB CONC 33.2 g/dL (32.0-36.0); MEAN CORPUSCULAR VOLUME 93 fl (80-97); RED BLOOD COUNT 4.26 10^6/uL (4.35-5.55); RED CELL DISTRIBUTION WIDTH 14.2 % (11.5-14.0); WHITE BLOOD COUNT 16.5 10^3/uL (4.0-10.5)
[2016-04-24 14:03] LABS: PROTHROMBIN TIME 15.5 SEC (11.4-15.4)
[2016-04-24 14:08] LABS: ALANINE AMINOTRANSFERASE 73 U/L (21-72); ALBUMIN 2.7 g/dL (3.5-5.0); ALKALINE PHOSPHATASE 127 U/L (38-126); ANION GAP 11 (5-19); ASPARTATE AMINO TRANSFERASE 89 U/L (17-59); BILIRUBIN,DIRECT 0.2 mg/dL (0.0-0.3); BLOOD UREA NITROGEN 21 mg/dL (7-20); CALCIUM 8.9 mg/dL (8.4-10.2); CARBON DIOXIDE 29 mmol/L (22-30); CHLORIDE 100 mmol/L (98-107); CREATININE RESULT 1.06 mg/dL (0.52-1.25); GLUCOSE 147 mg/dL (75-110); POTASSIUM 3.2 mmol/L (3.6-5.0); SODIUM 140.3 mmol/L (137-145); TOTAL PROTEIN 5.3 g/dL (6.3-8.2)
[2016-04-24] MEDS ORDERED: SUCCINYLCHOLINE CHLORIDE INJ 200 MG/10 ML VIAL ONE (14:26)
[2016-04-24] MEDS ORDERED: ROCURONIUM BROMIDE INJ 50 MG/5 ML VIAL IV ONE (14:26)
--- NOTE | 2016-04-24 14:54 | Operative Report ---
Operative Report DATE OF SURGERY: 04/23/16 PREOPERATIVE DIAGNOSIS: Acute cholecystitis with cholelithiasis and choledocholithiasis POSTOPERATIVE DIAGNOSIS: Acute suppurative cholecystitis with cholelithiasis and choledocholithiasis. OPERATION: Laparoscopic converted to open cholecystectomy SURGEON: LISA REDMAN 1ST CELL TESTER: ROD MARQUEZ ANESTHESIA: GA TISSUE REMOVED OR ALTERED: Gallbladder COMPLICATIONS: None noted ESTIMATED BLOOD LOSS: 750 mL INTRAOPERATIVE FINDINGS: Large phlegmonous mass in the right upper quadrant. Friable superlative gallbladder which collapsed when grasped with leakage of pus. Poorly defined right upper quadrant anatomy due to inflammatory phlegmon. PROCEDURE: The patient was brought to the operative suite and placed supine on the OR table. Timeout was performed. Antibiotics were administered. Padding and positioning was appropriate. The patient was induced, intubated and maintained on general endotracheal anesthesia throughout the procedure. Patient was prepped and draped in the normal sterile fashion. The skin above the umbilicus was infiltrated with local anesthetic. A 5 mm incision was made. A Samir and Adson were used to dissect down to the level of the fascia, grasped the fascia and elevate it. The Veress needle was placed. Satisfactory water drop test was performed. Low flow insufflation was connected and yielded low opening pressure. Insufflation was advanced to high flow and pneumoperitoneum of 15 mmHg was obtained and maintained with procedure. Trocar and camera were placed through this incision confirming entry into the abdominal cavity without incident. Inspection of the abdominal cavity revealed significant omentum which obscured most underlying structures. The liver had a pale boggy appearance suggestive of early acute inflammation secondary to the gallbladder but also probable underlying low-grade liver disease. The patient's pattern of bleeding from the trocar sites were consistent with probable underlying low- grade liver disease. The gallbladder was not visible due to dense adhesions and inflammatory mass in the right upper quadrant. Next the 11 mm epigastric and the two 5 mm right subcostal trochars were placed in the normal location and fashion under direct visualization, after infiltration with local anesthetic. Instruments were introduced. Gentle blunt dissection of the inflammatory mass over the gallbladder yielded some visualization of the fundus the gallbladder, but also resulted in some bleeding. The fundus the gallbladder was grasped and the wall the gallbladder immediately collapsed and there was purulent drainage. The drainage was controlled with suction and irrigation. Due to the friable, near necrotic and purulent gallbladder as well as the firm inflammatory phlegmon and the bleeding, the decision was made to convert to open surgery. Visualization of the operative field was maintained laparoscopically while the open instruments were prepared. Gas was stopped with the insufflation artery and the abdomen was maintained as the epigastric and 2 right subcostal trocar sites were connected to create an open incision. The skin between the incisions was infiltrated for local anesthetic. A 10 scalpel was used to incise the skin and the incision was continued down to level of fascia with cautery. The anterior rectus sheath was divided near the epigastric trocar site , then a finger was inserted through the trocar site, and protecting the underlying contents the incision was extended over a finger. Once the incision was completed a [place] retractor was placed. Laps were placed in the operative field, controlling bleeding from the gallbladder bed as well as moderate bleeding from the gallbladder fossa and a tension laceration in the liver extending out approximately 4 cm from the gallbladder fossa to the right. The bleeding from this laceration was controlled with high-energy electrocautery and then placement of Surgicel. We communicated with anesthesia throughout the case. The patient was typed and crossed is a cautionary measure but remained hemodynamically stable, so no transfusions were needed. Dissection of the gallbladder from a top-down technique was performed. Other than some controllable bleeding from the gallbladder bed, the dissection progressed well for the superior half of the gallbladder. However, the inferior half of the gallbladder dissection was complicated. The surrounding omentum and pericolonic and duodenal structures were poorly defined and were involved in a phlegmon involving the inferior half of the gallbladder. The stomach down to the antrum was clearly identified and was not involved. The pylorus was involved in the inflammatory mass and was not well-defined. The omentum overlying the right half of the transverse colon was dissected off the colon and the colon was inspected. It appeared to be uninvolved. Using finger fracture and cautery, the gallbladder was from surrounding structures as much as possible and the inferior border of the gallbladder was approximated. The inflammatory mass was divided at this point with electrocautery. The specimen was removed. There was arterial bleeding in the remaining inflammatory mass which was controlled with pressure and then two 3-0 Vicryl hemostatic sutures. The location of this bleeding was appropriate for the cystic artery. Bleeding was controlled, except for a low-grade venous blood was from the operative field, which was controlled with Surgicel and pressure. The specimen was inspected. It appeared to have a pinhole at the inferior aspect. And a mosquito forceps was placed in the lumen of the gallbladder and the tips were advanced gently towards the infundibulum and naturally protruded through this pinhole, indicating a likely junction with the cystic duct. No cystic duct/appropriate structure with a lumen was identified in the inflammatory phlegmon, so no stitch or clipped was placed to secure the cystic duct. Instead, a 15 [place] round drain was placed into the operative field and brought out through the right midabdomen. It was sewn in place with a 2-0 Prolene suture. This was connected to DAVID bulb suction. The operative field was inspected and was hemostatic without surgical bleeding or bile leakage. The surrounding area was irrigated and suctioned. The stomach , omentum, colon, right pericolic gutter and remaining inflammatory mass were inspected. No bleeding or other active problems were identified other than the obvious inflammatory changes. Lap needle and sponge counts were correct. A fish was inserted and the right subcostal incision was closed in 2 layers using 1-0 looped Prolene. The deep layer involved the posterior rectus sheath and laterally the transversus abdominis fascia and inferior oblique fascia. The superficial layer involved the anterior rectus sheath and the superior oblique fascia laterally. The deep layer used 2 stitches, one working medial to lateral and one working lateral to medial and tying to each other. The superficial layer used a single 0 looped Prolene tying to itself laterally. The skin was irrigated tried and then closed at the skin with daquan. Total blood loss was estimated to be 750 mL. All lap needle sponge counts were correct at the end of the case. The patient maintained hemostatic stability throughout the case and was taken to recovery in stable condition. MARIUM Wheeler, was present and assisted throughout the entirety of the case. Her assistance was essential in this complex case. She assisted in obtaining pneumoperitoneum, operating camera, opening and later closing, retracting, dissecting, obtaining hemostasis, confirming anatomy etc.
[2016-04-24] MEDS: VERAPAMIL HCL 240 MG TABLET.SA PO SCH (15:17)
[2016-04-24] MEDS: LISINOPRIL 10 MG TABLET PO SCH (15:17)
[2016-04-24] MEDS: FAMOTIDINE INJ/PF 20 MG/2 ML SDV IV SCH ×2 (15:17→21:19)
[2016-04-24] MEDS: HYDROCHLOROTHIAZIDE 25 MG TABLET PO SCH (15:17)
[2016-04-24] MEDS: RINGERS SOLUTION,LACTATED 1,000 ML IV PRN (18:05)
[2016-04-25] MEDS: PIPERACILLIN SODIUM/TAZOBACTAM 3.375 GM in NORMAL SALINE 100 ML IV SCH ×4 (00:29→21:08)
[2016-04-25] MEDS: HYDROMORPHONE HCL INJ/PF 2 MG/ML AMPULE IV PRN ×12 (01:16→23:01)
[2016-04-25] MEDS: RINGERS SOLUTION,LACTATED 1,000 ML IV PRN ×3 (03:38→23:44)
[2016-04-25] MEDS: ONDANSETRON HCL INJ/PF 4 MG/2 ML SDV IV PRN (05:07)
[2016-04-25 05:50] LABS: MEAN CORPUSCULAR HEMOGLOBIN 30.5 pg (27.0-33.4); MEAN CORPUSCULAR HGB CONC 33.2 g/dL (32.0-36.0); MEAN CORPUSCULAR VOLUME 92 fl (80-97); RED BLOOD COUNT 4.25 10^6/uL (4.35-5.55); WHITE BLOOD COUNT 14.5 10^3/uL (4.0-10.5)
[2016-04-25 06:12] LABS: ALANINE AMINOTRANSFERASE 62 U/L (21-72); ALBUMIN 2.8 g/dL (3.5-5.0); ALKALINE PHOSPHATASE 110 U/L (38-126); ANION GAP 12 (5-19); ASPARTATE AMINO TRANSFERASE 45 U/L (17-59); BILIRUBIN,TOTAL 1.3 mg/dL (0.2-1.3); BLOOD UREA NITROGEN 17 mg/dL (7-20); CALCIUM 8.8 mg/dL (8.4-10.2); CARBON DIOXIDE 29 mmol/L (22-30); CHLORIDE 99 mmol/L (98-107); CREATININE RESULT 0.74 mg/dL (0.52-1.25); GLUCOSE 117 mg/dL (75-110); POTASSIUM 3.5 mmol/L (3.6-5.0); TOTAL PROTEIN 5.3 g/dL (6.3-8.2)
[2016-04-25] MEDS: ENOXAPARIN SODIUM INJ 40 MG/0.4 ML DISP.SYRIN SUBCUT SCH (09:13)
[2016-04-25] MEDS: FAMOTIDINE INJ/PF 20 MG/2 ML SDV IV SCH ×2 (09:14→21:09)
[2016-04-25] MEDS: LISINOPRIL 10 MG TABLET PO SCH (09:14)
[2016-04-25] MEDS: HYDROCHLOROTHIAZIDE 25 MG TABLET PO SCH (09:15)
[2016-04-25] MEDS: VERAPAMIL HCL 240 MG TABLET.SA PO SCH (09:15)
[2016-04-26] MEDS: HYDROMORPHONE HCL INJ/PF 2 MG/ML AMPULE IV PRN ×7 (02:22→23:48)
[2016-04-26] MEDS: PIPERACILLIN SODIUM/TAZOBACTAM 3.375 GM in NORMAL SALINE 100 ML IV SCH ×3 (06:37→21:28)
--- NOTE | 2016-04-26 06:41 | PDOC PROGRESS REPORT ---
Subjective Progress Note for:: 04/25/16 Subjective:: Late entry. Minor nausea. No vomiting. Still with occasional hot flashes/ sweats. No flatus/BM. Still transient confusion, but much improved. Scant output from the drain. Physical Exam Vital Signs: Temp Pulse Resp BP Pulse Ox 99.0 F 98 20 160/75 H 90 L 04/26/16 04:40 04/26/16 04:40 04/26/16 04:40 04/26/16 04:40 04/26/16 04:40 Intake & Output 04/24/16 04/25/16 04/26/16 06:59 06:59 06:59 Intake Total 900 2750 3551 Output Total 2070 1575 Balance 747 571 6573 Weight 105.188 kg 106.2 kg 105 kg General appearance: PRESENT: no acute distress Head exam: PRESENT: normocephalic Eye exam: PRESENT: EOMI Teeth exam: PRESENT: other - Dentures Respiratory exam: PRESENT: clear to auscultation last Cardiovascular exam: PRESENT: RRR GI/Abdominal exam: PRESENT: distended, soft, tenderness, other - No bowel sounds. Drain has scant serosanguineous output, can't rule out bilious. Incision with daquan. Dressings changed. Neurological exam: PRESENT: alert, oriented to situation Psychiatric exam: PRESENT: appropriate affect, normal mood Skin exam: ABSENT: jaundice Results Laboratory Results: 04/25/16 05:18 04/25/16 05:18 Impressions: Abdomen/Pelvis CT 04/22/16 00:00 IMPRESSION: Moderate inflammatory changes are present in the gallbladder fossa suggesting possible cholecystitis. Chest X-Ray 04/22/16 18:40 IMPRESSION: Minimal subsegmental atelectasis at the left lateral lung base, otherwise stable radiograph. Endo Retro Cholangiopancreatogram 04/23/16 00:00 IMPRESSION: IMAGE(S) OBTAINED DURING PROCEDURE. Fluoroscopy 04/23/16 00:00 IMPRESSION: Please see combined report for performance of procedure and radiologic supervision and interpretation. Assessment & Plan - Diagnosis (1) Choledocholithiasis with acute cholecystitis with obstruction Is this a current diagnosis for this admission?: YesPlan: Acute suppurative cholecystitis with cholelithiasis. Continue antibiotics, Lovenox, SCDs, incentive spirometry. Continue nothing by mouth until bowel function resumes. Continue drain. Ambulate. PT ordered. Continue Jose due to urinary retention and monitoring in ill patient. (2) Cholecystitis Is this a current diagnosis for this admission?: Yes (3) Antithrombin III deficiency Is this a current diagnosis for this admission?: Yes
[2016-04-26] MEDS ORDERED: TAMSULOSIN HCL 0.4 MG CAP.SR.24H PO ONE (07:30)
[2016-04-26 09:10] LABS: HEMATOCRIT 37.3 % (37.9-51.0); HEMOGLOBIN 12.5 g/dL (13.5-17.0); HGB HCT DIFFERENCE 0.2; MEAN CORPUSCULAR HEMOGLOBIN 30.9 pg (27.0-33.4); MEAN CORPUSCULAR HGB CONC 33.6 g/dL (32.0-36.0); MEAN CORPUSCULAR VOLUME 92 fl (80-97); RED BLOOD COUNT 4.06 10^6/uL (4.35-5.55); RED CELL DISTRIBUTION WIDTH 14.3 % (11.5-14.0); WHITE BLOOD COUNT 14.5 10^3/uL (4.0-10.5)
[2016-04-26 09:40] LABS: ALANINE AMINOTRANSFERASE 47 U/L (21-72); ALBUMIN 2.5 g/dL (3.5-5.0); ALKALINE PHOSPHATASE 104 U/L (38-126); ANION GAP 10 (5-19); ASPARTATE AMINO TRANSFERASE 30 U/L (17-59); BILIRUBIN,TOTAL 1.1 mg/dL (0.2-1.3); BLOOD UREA NITROGEN 19 mg/dL (7-20); CALCIUM 8.8 mg/dL (8.4-10.2); CARBON DIOXIDE 35 mmol/L (22-30); CHLORIDE 95 mmol/L (98-107); GLUCOSE 110 mg/dL (75-110); POTASSIUM 3.7 mmol/L (3.6-5.0); SODIUM 140.1 mmol/L (137-145); TOTAL PROTEIN 5.4 g/dL (6.3-8.2)
[2016-04-26] MEDS: FAMOTIDINE INJ/PF 20 MG/2 ML SDV IV SCH ×2 (09:51→21:27)
[2016-04-26] MEDS: LISINOPRIL 10 MG TABLET PO SCH (09:51)
[2016-04-26] MEDS: ENOXAPARIN SODIUM INJ 40 MG/0.4 ML DISP.SYRIN SUBCUT SCH (09:52)
[2016-04-26] MEDS: HYDROCHLOROTHIAZIDE 25 MG TABLET PO SCH (09:52)
[2016-04-26] MEDS: VERAPAMIL HCL 240 MG TABLET.SA PO SCH (09:52)
[2016-04-26] MEDS: POTASSI CL 20 MEQ/D5-1/2NS 1L 1,000 ML IV PRN ×2 (11:11→21:29)
--- NOTE | 2016-04-26 13:37 | PDOC PROGRESS REPORT ---
Subjective Progress Note for:: 04/26/16 Subjective:: Feels better today. Less abdominal pain. Passing gas but still feels bloated. No vomiting. Physical Exam Vital Signs: Temp Pulse Resp BP Pulse Ox 98.0 F 96 18 160/93 H 97 04/26/16 07:16 04/26/16 07:16 04/26/16 07:16 04/26/16 07:16 04/26/16 07:16 Intake & Output 04/25/16 04/26/16 04/27/16 06:59 06:59 06:59 Intake Total 2750 3551 Output Total 2070 1875 Balance 680 1676 Weight 106.2 kg 105 kg General appearance: PRESENT: no acute distress Respiratory exam: PRESENT: clear to auscultation last Cardiovascular exam: PRESENT: RRR GI/Abdominal exam: PRESENT: other - Soft, moderately distended, diffuse upper abdominal tenderness without peritoneal signs. Drain with serosanguineous output. Extremities exam: PRESENT: other - No tenderness and no swelling. Results Laboratory Results: 04/26/16 08:38 04/26/16 08:38 04/26/16 04/26/16 08:38 08:38 WBC 14.5 H RBC 4.06 L Hgb 12.5 L Hct 37.3 L MCV 92 MCH 30.9 MCHC 33.6 RDW 14.3 H Plt Count 309 Sodium 140.1 Potassium 3.7 Chloride 95 L Carbon Dioxide 35 H Anion Gap 10 BUN 19 Creatinine 0.80 Est GFR ( Amer) > 60 Est GFR (Non-Af Amer) > 60 Glucose 110 Calcium 8.8 Total Bilirubin 1.1 AST 30 ALT 47 Alkaline Phosphatase 104 Total Protein 5.4 L Albumin 2.5 L Impressions: Abdomen/Pelvis CT 04/22/16 00:00 IMPRESSION: Moderate inflammatory changes are present in the gallbladder fossa suggesting possible cholecystitis. Chest X-Ray 04/22/16 18:40 IMPRESSION: Minimal subsegmental atelectasis at the left lateral lung base, otherwise stable radiograph. Endo Retro Cholangiopancreatogram 04/23/16 00:00 IMPRESSION: IMAGE(S) OBTAINED DURING PROCEDURE. Fluoroscopy 04/23/16 00:00 IMPRESSION: Please see combined report for performance of procedure and radiologic supervision and interpretation. Assessment & Plan - Diagnosis (1) Cholecystitis Is this a current diagnosis for this admission?: YesPlan: Status post open cholecystectomy. Looks okay. Still with the ileus. Will start the by mouth's when abdominal distention has markedly improved. His ambulation. Decrease his narcotic frequency.
[2016-04-26] MEDS: ONDANSETRON HCL INJ/PF 4 MG/2 ML SDV IV PRN ×2 (15:42→23:55)
[2016-04-26] MEDS: TAMSULOSIN HCL 0.4 MG CAP.SR.24H PO SCH (17:51)
[2016-04-27] MEDS: HYDROMORPHONE HCL INJ/PF 2 MG/ML AMPULE IV PRN ×6 (02:22→21:24)
[2016-04-27] MEDS: PIPERACILLIN SODIUM/TAZOBACTAM 3.375 GM in NORMAL SALINE 100 ML IV SCH ×3 (05:41→21:23)
[2016-04-27] MEDS: VERAPAMIL HCL 240 MG TABLET.SA PO SCH (09:32)
[2016-04-27] MEDS: FAMOTIDINE INJ/PF 20 MG/2 ML SDV IV SCH ×2 (09:32→21:23)
[2016-04-27] MEDS: LISINOPRIL 10 MG TABLET PO SCH (09:32)
[2016-04-27] MEDS: ENOXAPARIN SODIUM INJ 40 MG/0.4 ML DISP.SYRIN SUBCUT SCH (09:32)
[2016-04-27] MEDS: HYDROCHLOROTHIAZIDE 25 MG TABLET PO SCH (09:33)
[2016-04-27] MEDS: POTASSI CL 20 MEQ/D5-1/2NS 1L 1,000 ML IV PRN (10:20)
--- NOTE | 2016-04-27 11:15 | PDOC PROGRESS REPORT ---
Subjective Subjective:: No nausea or vomiting. + Flatus, no BM. Damon came out overnight. He has been urinating without difficulty since it has been out. Physical Exam Vital Signs: Temp Pulse Resp BP Pulse Ox 98.7 F 85 19 149/84 H 94 04/27/16 07:23 04/27/16 07:23 04/27/16 07:23 04/27/16 07:23 04/27/16 07:23 Intake & Output 04/26/16 04/27/16 04/28/16 06:59 06:59 06:59 Intake Total 3551 1879 Output Total 1875 1785 Balance 1676 94 Weight 105 kg 112 kg General appearance: PRESENT: no acute distress, obese Eye exam: PRESENT: EOMI Mouth exam: PRESENT: tongue midline, other - Dentures GI/Abdominal exam: PRESENT: distended - Still distended, but less so., normal bowel sounds, soft, tenderness - Appropriate incisional tenderness, other - Incision clean dry and intact with daquan. Scant serosanguineous, possible bilious drain output.. ABSENT: firm, guarding, rebound Neurological exam: PRESENT: alert, oriented to situation Psychiatric exam: PRESENT: appropriate affect, normal mood Skin exam: ABSENT: jaundice Results Laboratory Results: 04/26/16 08:38 04/26/16 08:38 Impressions: Abdomen/Pelvis CT 04/22/16 00:00 IMPRESSION: Moderate inflammatory changes are present in the gallbladder fossa suggesting possible cholecystitis. Chest X-Ray 04/22/16 18:40 IMPRESSION: Minimal subsegmental atelectasis at the left lateral lung base, otherwise stable radiograph. Endo Retro Cholangiopancreatogram 04/23/16 00:00 IMPRESSION: IMAGE(S) OBTAINED DURING PROCEDURE. Fluoroscopy 04/23/16 00:00 IMPRESSION: Please see combined report for performance of procedure and radiologic supervision and interpretation. Assessment & Plan - Diagnosis (1) Choledocholithiasis with acute cholecystitis with obstruction Is this a current diagnosis for this admission?: YesPlan: Recheck labs. Continue natural diuresis. Okay to shower. Continue right upper quadrant drain to DAVID closed suction. Decrease maintenance IV fluids to 75 mL per hour. Advance diet to clear liquids. IV Dilaudid has been decreased to every 3 hours. Continue Lovenox, SCDs, incentive spirometry, ambulation. (2) Cholecystitis Is this a current diagnosis for this admission?: Yes (3) Antithrombin III deficiency Is this a current diagnosis for this admission?: Yes
[2016-04-27 11:27] LABS: HEMATOCRIT 36.8 % (37.9-51.0); HEMOGLOBIN 12.1 g/dL (13.5-17.0); HGB HCT DIFFERENCE -0.5; MEAN CORPUSCULAR HEMOGLOBIN 30.2 pg (27.0-33.4); MEAN CORPUSCULAR HGB CONC 32.9 g/dL (32.0-36.0); MEAN CORPUSCULAR VOLUME 92 fl (80-97); WHITE BLOOD COUNT 12.3 10^3/uL (4.0-10.5)
[2016-04-27 11:42] LABS: ALANINE AMINOTRANSFERASE 47 U/L (21-72); ALBUMIN 2.6 g/dL (3.5-5.0); ALKALINE PHOSPHATASE 100 U/L (38-126); ANION GAP 8 (5-19); ASPARTATE AMINO TRANSFERASE 32 U/L (17-59); BILIRUBIN,TOTAL 0.8 mg/dL (0.2-1.3); BLOOD UREA NITROGEN 16 mg/dL (7-20); CALCIUM 8.8 mg/dL (8.4-10.2); CARBON DIOXIDE 35 mmol/L (22-30); CHLORIDE 95 mmol/L (98-107); CREATININE RESULT 0.77 mg/dL (0.52-1.25); GLUCOSE 130 mg/dL (75-110); POTASSIUM 3.1 mmol/L (3.6-5.0); SODIUM 137.5 mmol/L (137-145); TOTAL PROTEIN 5.5 g/dL (6.3-8.2)
[2016-04-27] MEDS: POTASSI CL 20 MEQ/50 ML RIDER 20 MEQ/50 ML RTUPB IV SCH ×2 (13:35→15:47)
[2016-04-27] MEDS: TAMSULOSIN HCL 0.4 MG CAP.SR.24H PO SCH (17:08)
[2016-04-28] MEDS: HYDROMORPHONE HCL INJ/PF 2 MG/ML AMPULE IV PRN ×3 (00:16→06:56)
[2016-04-28] MEDS: POTASSI CL 20 MEQ/D5-1/2NS 1L 1,000 ML IV PRN ×2 (00:17→16:17)
[2016-04-28] MEDS: PIPERACILLIN SODIUM/TAZOBACTAM 3.375 GM in NORMAL SALINE 100 ML IV SCH ×3 (05:35→21:57)
[2016-04-28 06:40] LABS: ALANINE AMINOTRANSFERASE 53 U/L (21-72); ALBUMIN 2.6 g/dL (3.5-5.0); ALKALINE PHOSPHATASE 108 U/L (38-126); ANION GAP 11 (5-19); ASPARTATE AMINO TRANSFERASE 38 U/L (17-59); BILIRUBIN,TOTAL 0.8 mg/dL (0.2-1.3); BLOOD UREA NITROGEN 14 mg/dL (7-20); CALCIUM 8.9 mg/dL (8.4-10.2); CARBON DIOXIDE 29 mmol/L (22-30); CHLORIDE 97 mmol/L (98-107); CREATININE RESULT 0.83 mg/dL (0.52-1.25); GLUCOSE 118 mg/dL (75-110); POTASSIUM 3.6 mmol/L (3.6-5.0); SODIUM 137.2 mmol/L (137-145); TOTAL PROTEIN 5.6 g/dL (6.3-8.2)
[2016-04-28] MEDS: FAMOTIDINE INJ/PF 20 MG/2 ML SDV IV SCH ×2 (09:48→21:57)
[2016-04-28] MEDS: VERAPAMIL HCL 240 MG TABLET.SA PO SCH (09:48)
[2016-04-28] MEDS: HYDROCHLOROTHIAZIDE 25 MG TABLET PO SCH (09:49)
[2016-04-28] MEDS: LISINOPRIL 10 MG TABLET PO SCH (09:49)
[2016-04-28] MEDS: ENOXAPARIN SODIUM INJ 40 MG/0.4 ML DISP.SYRIN SUBCUT SCH (09:50)
[2016-04-28] MEDS: OXYCODONE-ACETAMINOPHEN 5-325 MG TABLET PO PRN ×3 (10:34→21:57)
[2016-04-28] MEDS: TAMSULOSIN HCL 0.4 MG CAP.SR.24H PO SCH (17:57)
--- NOTE | 2016-04-28 19:04 | PDOC PROGRESS REPORT ---
Subjective Progress Note for:: 04/28/16 Physical Exam Vital Signs: Temp Pulse Resp BP Pulse Ox 98.3 F 93 16 158/84 H 97 04/28/16 08:05 04/28/16 08:05 04/28/16 08:05 04/28/16 08:05 04/28/16 08:05 Intake & Output 04/27/16 04/28/16 04/29/16 06:59 06:59 06:59 Intake Total 1879 3301 Output Total 1785 1905 Balance 94 1396 Weight 112 kg 110.5 kg General appearance: PRESENT: no acute distress, well-developed, well-nourished Head exam: PRESENT: atraumatic, normocephalic Eye exam: PRESENT: conjunctiva pink, EOMI, PERRLA. ABSENT: scleral icterus Ear exam: PRESENT: normal external ear exam Mouth exam: PRESENT: moist, tongue midline Neck exam: ABSENT: carotid bruit, JVD, lymphadenopathy, thyromegaly Respiratory exam: PRESENT: clear to auscultation last. ABSENT: rales, rhonchi, wheezes Cardiovascular exam: PRESENT: RRR. ABSENT: diastolic murmur, rubs, systolic murmur Pulses: PRESENT: normal dorsalis pedis pul Vascular exam: PRESENT: normal capillary refill GI/Abdominal exam: PRESENT: normal bowel sounds, soft. ABSENT: distended, guarding, mass - soft, distended, organolmegaly, rebound, tenderness Rectal exam: PRESENT: deferred Extremities exam: PRESENT: full ROM. ABSENT: calf tenderness, clubbing, pedal edema Neurological exam: PRESENT: alert, awake, oriented to person, oriented to place , oriented to time, oriented to situation, CN II-XII grossly intact. ABSENT: motor sensory deficit Psychiatric exam: PRESENT: appropriate affect, normal mood. ABSENT: homicidal ideation, suicidal ideation Skin exam: PRESENT: dry, intact, warm. ABSENT: cyanosis, rash Results Laboratory Results: 04/27/16 11:22 04/28/16 05:35 04/24/16 04/27/16 04/27/16 12:05 11:22 11:22 WBC 12.3 H RBC 4.00 L Hgb 12.1 L Hct 36.8 L MCV 92 MCH 30.2 MCHC 32.9 RDW 14.0 Plt Count 322 Sodium 137.5 Potassium 3.1 L Chloride 95 L Carbon Dioxide 35 H Anion Gap 8 BUN 16 Creatinine 0.77 Est GFR ( Amer) > 60 Est GFR (Non-Af Amer) > 60 Glucose 130 H Calcium 8.8 Total Bilirubin 0.8 AST 32 ALT 47 Alkaline Phosphatase 100 Total Protein 5.5 L Albumin 2.6 L Blood Type A POSITIVE Antibody Screen NEGATIVE 04/28/16 05:35 WBC RBC Hgb Hct MCV MCH MCHC RDW Plt Count Sodium 137.2 Potassium 3.6 Chloride 97 L Carbon Dioxide 29 Anion Gap 11 BUN 14 Creatinine 0.83 Est GFR ( Amer) > 60 Est GFR (Non-Af Amer) > 60 Glucose 118 H Calcium 8.9 Total Bilirubin 0.8 AST 38 ALT 53 Alkaline Phosphatase 108 Total Protein 5.6 L Albumin 2.6 L Blood Type Antibody Screen Impressions: Abdomen/Pelvis CT 04/22/16 00:00 IMPRESSION: Moderate inflammatory changes are present in the gallbladder fossa suggesting possible cholecystitis. Chest X-Ray 04/22/16 18:40 IMPRESSION: Minimal subsegmental atelectasis at the left lateral lung base, otherwise stable radiograph. Endo Retro Cholangiopancreatogram 04/23/16 00:00 IMPRESSION: IMAGE(S) OBTAINED DURING PROCEDURE. Fluoroscopy 04/23/16 00:00 IMPRESSION: Please see combined report for performance of procedure and radiologic supervision and interpretation. Assessment & Plan - Plan Summary Plan Summary: Ileus passing flatus Liquid dieit Ambulate
[2016-04-28] MEDS ORDERED: DOCUSATE SODIUM 100 MG CAPSULE PO ONE (20:00)
[2016-04-29] MEDS: PIPERACILLIN SODIUM/TAZOBACTAM 3.375 GM in NORMAL SALINE 100 ML IV SCH ×3 (05:25→21:09)
[2016-04-29] MEDS: POTASSI CL 20 MEQ/D5-1/2NS 1L 1,000 ML IV PRN ×2 (05:25→21:18)
[2016-04-29] MEDS: OXYCODONE-ACETAMINOPHEN 5-325 MG TABLET PO PRN ×3 (08:10→21:18)
[2016-04-29] MEDS: ENOXAPARIN SODIUM INJ 40 MG/0.4 ML DISP.SYRIN SUBCUT SCH (08:10)
[2016-04-29] MEDS: LISINOPRIL 10 MG TABLET PO SCH (10:38)
[2016-04-29] MEDS: VERAPAMIL HCL 240 MG TABLET.SA PO SCH (10:38)
[2016-04-29] MEDS: DOCUSATE SODIUM 100 MG CAPSULE PO SCH ×2 (10:38→17:17)
[2016-04-29] MEDS: FAMOTIDINE INJ/PF 20 MG/2 ML SDV IV SCH ×2 (10:38→21:10)
[2016-04-29] MEDS: HYDROCHLOROTHIAZIDE 25 MG TABLET PO SCH (10:38)
--- NOTE | 2016-04-29 13:31 | PDOC PROGRESS REPORT ---
Subjective Progress Note for:: 04/29/16 Subjective:: feeling better Had BM Tolerating full liquid diet Physical Exam Vital Signs: Temp Pulse Resp BP Pulse Ox 98.7 F 91 16 167/88 H 96 04/29/16 07:29 04/29/16 07:29 04/29/16 07:29 04/29/16 07:29 04/29/16 07:29 Intake & Output 04/28/16 04/29/16 04/30/16 06:59 06:59 06:59 Intake Total 3301 5923 Output Total 1905 1705 Balance 1396 4218 Weight 110.5 kg 108.6 kg GI/Abdominal exam: PRESENT: ascites, diminished bowel sounds, distended, firm, guarding, hernia, hyperactive bowel sounds, hypoactive bowel sounds, mass, Valentine's sign, normal bowel sounds, organolmegaly, rebound, rigid, soft - Incision clean DAVID drain - serous slight brown tinge, tenderness, other Results Laboratory Results: 04/27/16 11:22 04/28/16 05:35 Impressions: Abdomen/Pelvis CT 04/22/16 00:00 IMPRESSION: Moderate inflammatory changes are present in the gallbladder fossa suggesting possible cholecystitis. Chest X-Ray 04/22/16 18:40 IMPRESSION: Minimal subsegmental atelectasis at the left lateral lung base, otherwise stable radiograph. Endo Retro Cholangiopancreatogram 04/23/16 00:00 IMPRESSION: IMAGE(S) OBTAINED DURING PROCEDURE. Fluoroscopy 04/23/16 00:00 IMPRESSION: Please see combined report for performance of procedure and radiologic supervision and interpretation. Assessment & Plan - Plan Summary Plan Summary: Post op Ileus - Resolving Advance diet Open cholecystectomy for severe cholecystitis, with difficult anotomy - concern for post op issues - with cystic duct area - due to these reasons DC plan with DAVID drain in place AM
[2016-04-29 14:59] LABS: ABSOLUTE BASOPHILS # (AUTO) 0.1 10^3/uL (0.0-0.2); ABSOLUTE EOSINOPHILS # (AUTO) 0.5 10^3/uL (0.0-0.6); ABSOLUTE LYMPHOCYTES (AUTO) 1.8 10^3/uL (0.5-4.7); ABSOLUTE NEUT (AUTO) 6.8 10^3/uL (1.7-8.2); BASOPHILS % (AUTO) 0.8 % (0-2); EOSINOPHILS % (AUTO) 4.6 % (0-6); HEMATOCRIT 38.9 % (37.9-51.0); HEMOGLOBIN 12.8 g/dL (13.5-17.0); HGB HCT DIFFERENCE -0.5; LYMPHOCYTES % (AUTO) 18.1 % (13-45); MEAN CORPUSCULAR HEMOGLOBIN 30.4 pg (27.0-33.4); MEAN CORPUSCULAR HGB CONC 32.8 g/dL (32.0-36.0); MEAN CORPUSCULAR VOLUME 93 fl (80-97); MONOCYTES % (AUTO) 9.6 % (3-13); RED BLOOD COUNT 4.21 10^6/uL (4.35-5.55); RED CELL DISTRIBUTION WIDTH 14.4 % (11.5-14.0); SEGMENTED NEUTROPHILS % (AUTO) 66.9 % (42-78); WHITE BLOOD COUNT 10.1 10^3/uL (4.0-10.5)
[2016-04-29 15:14] LABS: ALANINE AMINOTRANSFERASE 49 U/L (21-72); ALBUMIN 3.3 g/dL (3.5-5.0); ALKALINE PHOSPHATASE 114 U/L (38-126); ANION GAP 11 (5-19); ASPARTATE AMINO TRANSFERASE 35 U/L (17-59); BILIRUBIN,TOTAL 0.8 mg/dL (0.2-1.3); BLOOD UREA NITROGEN 11 mg/dL (7-20); CALCIUM 9.2 mg/dL (8.4-10.2); CARBON DIOXIDE 28 mmol/L (22-30); CHLORIDE 101 mmol/L (98-107); CREATININE RESULT 0.88 mg/dL (0.52-1.25); GLUCOSE 122 mg/dL (75-110); POTASSIUM 3.6 mmol/L (3.6-5.0); SODIUM 139.8 mmol/L (137-145); TOTAL PROTEIN 6.1 g/dL (6.3-8.2)
[2016-04-29] MEDS: TAMSULOSIN HCL 0.4 MG CAP.SR.24H PO SCH (17:17)
[2016-04-30] MEDS: OXYCODONE-ACETAMINOPHEN 5-325 MG TABLET PO PRN ×2 (01:19→08:07)
[2016-04-30] MEDS: PIPERACILLIN SODIUM/TAZOBACTAM 3.375 GM in NORMAL SALINE 100 ML IV SCH (05:42)
--- NOTE | 2016-04-30 10:05 | PDOC DISCHARGE SUMMARY ---
General - Admit/Disc Date/PCP Admission Date/Primary Care Provider: 04/22/16 23:43 Discharge Date: 04/30/16 - Discharge Diagnosis (1) Abdominal pain Is this a current diagnosis for this admission?: Yes - Additional Information Resuscitation Status: Full Code Home Medications: Allopurinol [Zyloprim 300 mg Tablet] 300 mg PO DAILY 04/02/16 Aspirin [Aspirin EC] 81 mg PO DAILY 04/02/16 Multivitamin [Daily Multiple Vitamin] 1 tab PO DAILY 04/02/16 Verapamil HCl [Verapamil ER] 240 mg PO DAILY 04/02/16 Lisinopril/Hydrochlorothiazide [Lisinopril-Hctz 20-12.5 mg Tab] 1 each PO BID Docusate Sodium [Colace 100 mg Capsule] 100 mg PO BID #0 capsule 04/04/16 Oxycodone HCl/Acetaminophen [Percocet 5-325 mg Tablet] 1 tab PO Q4HP PRN #20 tablet 04/04/16 Tamsulosin HCl [Tamsulosin HCl] 0.4 mg PO DAILY 04/23/16 History of Present Illness History of Present Illness: ADRIAN ALMAZAN is a 65 year old male Hospital Course Hospital Course: The patient is a 65-year-old white male with a history of abdominal pain worked up in [place] and proximally 2 months ago. There was no definitive diagnosis at that time. His treatment with antibiotics and sent home. He sesamoid developed prolapsing external and internal hemorrhoids and underwent emergent hemorrhoidectomy by approximately 6 weeks ago. She was seen in the office 2 weeks ago and also surgical clinic where he is found to be doing well. Several days later presented to the emergency department with acute abdominal pain, right upper quadrant tenderness and leukocytosis. CT scan of the abdomen revealed findings consistent with acute cholecystitis. He was admitted to the surgical service for further management. Summary of hospitalization: The patient was kept nothing by mouth on IV fluids and intravenous antibiotics. Dr. Brady gastroenterlogist, was consulted and the patient underwent ERCP, with sludge extraction from the common bile duct. He subsequently underwent laparoscopic conversion to open cholecystectomy by Dr. DANIELLE Rosario. He tolerated this procedure well and had no postoperative complications. By the fifth postoperative day he was felt to proceed maximum benefit from the hospitalization was discharged home. Physical Exam Vital Signs: Temp Pulse Resp BP Pulse Ox 98.4 F 88 12 144/87 H 97 04/30/16 04:00 04/30/16 07:00 04/30/16 04:00 04/30/16 04:00 04/30/16 04:00 Intake & Output 04/29/16 04/30/16 05/01/16 06:59 06:59 06:59 Intake Total 5923 2999 Output Total 1705 2250 Balance 4218 749 Weight 108.6 kg 108.4 kg Results Laboratory Results: 04/29/16 14:48 04/29/16 14:48 04/29/16 04/29/16 14:48 14:48 WBC 10.1 RBC 4.21 L Hgb 12.8 L Hct 38.9 MCV 93 MCH 30.4 MCHC 32.8 RDW 14.4 H Plt Count 464 H Seg Neutrophils % 66.9 Lymphocytes % 18.1 Monocytes % 9.6 Eosinophils % 4.6 Basophils % 0.8 Absolute Neutrophils 6.8 Absolute Lymphocytes 1.8 Absolute Monocytes 1.0 Absolute Eosinophils 0.5 Absolute Basophils 0.1 Sodium 139.8 Potassium 3.6 Chloride 101 Carbon Dioxide 28 Anion Gap 11 BUN 11 Creatinine 0.88 Est GFR ( Amer) > 60 Est GFR (Non-Af Amer) > 60 Glucose 122 H Calcium 9.2 Total Bilirubin 0.8 AST 35 ALT 49 Alkaline Phosphatase 114 Total Protein 6.1 L Albumin 3.3 L Impressions: Abdomen/Pelvis CT 04/22/16 00:00 IMPRESSION: Moderate inflammatory changes are present in the gallbladder fossa suggesting possible cholecystitis. Chest X-Ray 04/22/16 18:40 IMPRESSION: Minimal subsegmental atelectasis at the left lateral lung base, otherwise stable radiograph. Endo Retro Cholangiopancreatogram 04/23/16 00:00 IMPRESSION: IMAGE(S) OBTAINED DURING PROCEDURE. Fluoroscopy 04/23/16 00:00 IMPRESSION: Please see combined report for performance of procedure and radiologic supervision and interpretation. Qualifiers PATEINT BEING DISCHARGED WITH ANY OF THE FOLLOWING DIAGNOSIS?: No VTE patient discharged on overlapping Therapy?: No Stroke Pt being discharged on Anti-thrombolytic therapy?: No Stroke Pt being discharged on Anti-coagulation therapy?: No Stroke Pt being discharged on Statins?: No CA Pt being discharged on Aspirin therapy?: No CA Pt being discharged on Statins?: No CA Pt discharged ACEI/ARBS?: No HF Pt being discharged on ACEI for LVEF less than 40%?: No HF Pt being discharged on ARBS for LVEF less than 40%?: No HF Pt with Afib discharged with Warfarin?: No HF Pt discharged on evidence-based Beta Prasanna?: No Plan Discharge Plan: Diagnose: 1. Final diagnosis: Acute cholecystitis with cholelithiasis status post laparoscopic conversion to open cholecystectomy 2. Status post recent 3 compartment open hemorrhoidectomy Plan: 1. Discharge home, care of his family. 2. Local with Dr. Abraham [facility] surgical clinic 1 week for staple removal. 3. We'll provide patient with prescription for pain medication; stool softener encouraged. Time Spent: Less than 30 Minutes
[2016-04-30] MEDS ORDERED: ONDANSETRON HCL INJ/PF 4 MG/2 ML SDV IV PRN (10:08)
[2016-04-30] MEDS ORDERED: PROMETHAZINE HCL 25 MG TABLET PO PRN (10:09)
[2016-04-30] MEDS: LISINOPRIL 10 MG TABLET PO SCH (11:01)
[2016-04-30] MEDS: HYDROCHLOROTHIAZIDE 25 MG TABLET PO SCH (11:01)
[2016-04-30] MEDS: VERAPAMIL HCL 240 MG TABLET.SA PO SCH (11:01)
[2016-04-30] MEDS: DOCUSATE SODIUM 100 MG CAPSULE PO SCH (11:02)
[2016-04-30] MEDS: ENOXAPARIN SODIUM INJ 40 MG/0.4 ML DISP.SYRIN SUBCUT SCH (11:02)
[2016-04-30] MEDS: FAMOTIDINE INJ/PF 20 MG/2 ML SDV IV SCH (11:02)
[2016-04-30 13:18] VITALS: BP 144/87
--- NOTE | 2016-04-30 14:24 | DISCHARGE SUMMARY E ---
Discharge Summary NAME: ADRIAN ALMAZAN : 1950 AGE: 65Y ADMITTED: 04/22/2016 DISCHARGED: 04/30/2016 ADMISSION DIAGNOSES: 1. Acute abdominal pain. 2. Acute cholecystitis. DISCHARGE DIAGNOSES: 1. Acute cholecystitis, partially gangrenous. 2. Difficult anatomy. HOSPITAL COURSE: Operative intervention was open cholecystectomy. Postop ileus. hospital course because of difficult anatomy. Dr. Rosario performed the surgery, open gallbladder and then subtotal cholecystectomy because of very difficult anatomy . Cystic duct area, basically gallbladder neck area, was sutured across with . For that reason, with a concern of possible bile leakage, we had a J-P drain placed, but from that point the patient is doing very well. No obvious bile leak. Abdomen is soft, nontender. He is tolerating diet. I am going to send him home. We will discharge him home with a J-P drain in place in case he starts having any bile leak , and then it can be reevaluated. For these reasons, we will keep the J-P drain in place. DISCHARGE INSTRUCTIONS: He will go home with a J-P drain and follow up as an outpatient in 1 week and also have the daquan removed at the same time. Patient otherwise doing very well. He will be discharged to go home. MEDICATIONS: Percocet and then Colace. I spent almost 40 minutes on detailed discussion with the patient, arranging and coordinating the care. DICTATING PHYSICIAN: KATIA BROWN M.D. [id number] PHY#: [id number] [id number] JOB#: [id number] ACCT: [id number] cc:KATIA BROWN M.D., IVAN PA >
== END 2016-04-30 13:53 | disposition home or self-care (01) | DRG 415 ==
LOC: ER 16:09 → EH 23:43 → UNDOADMIN 04-23 00:27 → 2S 04-23 09:28 → 3W 04-24 14:42
PROVIDERS: ADMIT Surgery; ATTEND Surgery
PROC: 0F798ZZ Dilation of Common Bile Duct, Via Natural or Artificial Opening Endoscopic (ICD-10-PCS; 2016-04-23)
PROC: 0FT40ZZ Resection of Gallbladder, Open Approach (ICD-10-PCS; principal; 2016-04-23 18:00)
PROC: 0FJ44ZZ Inspection of Gallbladder, Percutaneous Endoscopic Approach (ICD-10-PCS; 2016-04-23 18:00)
DX: K80.63 Calculus of gallbladder and bile duct with acute cholecystitis with obstruction (principal); K91.61 Intraoperative hemorrhage and hematoma of a digestive system organ or structure complicating a digestive system procedure; D68.59 Other primary thrombophilia; K56.7 Ileus, unspecified; I10 Essential (primary) hypertension; M10.9 Gout, unspecified; E86.0 Dehydration; E66.9 Obesity, unspecified; Z68.33 Body mass index [BMI] 33.0-33.9, adult; Z79.82 Long term (current) use of aspirin; Z79.899 Other long term (current) drug therapy; Z85.828 Personal history of other malignant neoplasm of skin; Z87.891 Personal history of nicotine dependence; Z88.3 Allergy status to other anti-infective agents
CPT/HCPCS: 00790; 36415; 43262; 43264; 71020; 74177; 74330; 80048; 80053; 80076; 81001; 82803; 83605; 83690; 85025; 85027; 85610; 85730; 86850; 86900; 86901; 86920; 87040; 87086; 87493; 88304; 93005; 93010; 94799; 96361; 96365; 99285; G8978-GP; G8979-GP; J0131; J0171; J0330; J1170; J1200; J1610; J1650; J2250; J2310; J2405; J2543; J2550; J2704; J3010; J3480; J3490; J7030; J7120; Q9967; S0028